=== PATIENT | female | born 1960 | race Caucasian/White ===

== ENCOUNTER 2017-04-02 13:18 | Emergency (ER) | payer OTHER ==
[~2017-04-02] VITALS: Ht 160 cm; Wt 92.5 kg
[~2017-04-02 13:18] MED LIST: BLACK COHOSH40 MG PO; FLUOXETINE HCL10 M1 PO; GLUCOPHAGE XR500 MG PO; GLYBURIDE 5 MG T5 M1 PO; HUMALOG100 UNIT/1; LANTUS; MEDROLDOSEPACK PO; MULTIVITAMINS PO; NORCO 5-325 TA1 EACH PO; ZANTAC 150MG T150 M1 PO
[2017-04-02 15:10] LABS: ABSOLUTE NEUTROPHILS 9.5 thou/uL (1.4-8.2); BASOPHILS 0.5 % (0.0-2.0); HEMOGLOBIN 13.1 gm/dL (12.0-15.0); LYMPHOCYTES 19.3 % (24.0-44.0); MCH 27.9 pg (26.0-34.0); MCHC 32.9 g/dL (28.0-37.0); MCV 84.9 fL (80.0-100.0); MONOCYTES 8.7 % (1.0-8.0); PLATELET COUNT 341 thou/uL (150-400); POLYS 68.5 % (36.0-66.0); RBC 4.71 mil/uL (4.20-5.00); RDW 14.3 % (10.5-14.5); WBC 13.8 thou/uL (4.0-11.0)
[2017-04-02 15:14] LABS: MANUAL DIFF NO
[2017-04-02 15:15] LABS: CREATININE 1.1 mg/dL (0.6-1.0); POTASSIUM 4.1 mmol/L (3.5-5.1)
[2017-04-02] MEDS ORDERED: KEFLEX500 MG PO (17:11)
[2017-04-02] MEDS ORDERED: BACTRIM DS TAB1 EACH PO (17:11)
[2017-04-02 17:37] VITALS: BP 120/51
== END 2017-04-02 17:37 | disposition home or self-care (01) ==
LOC: ER 13:18
PROVIDERS: Emergency Medicine
DX: S92.912A Unspecified fracture of left toe(s), initial encounter for closed fracture (principal); E11.9 Type 2 diabetes mellitus without complications; F17.210 Nicotine dependence, cigarettes, uncomplicated; F10.99 Alcohol use, unspecified with unspecified alcohol-induced disorder; Z88.7 Allergy status to serum and vaccine; Z90.711 Acquired absence of uterus with remaining cervical stump; Z86.718 Personal history of other venous thrombosis and embolism; Z79.4 Long term (current) use of insulin; W22.8XXA Striking against or struck by other objects, initial encounter; Y93.89 Activity, other specified; Y92.89 Other specified places as the place of occurrence of the external cause; Y99.8 Other external cause status

== ENCOUNTER → 2017-04-20 | Outpatient (CLI) | payer OTHER ==
[~2017-04-20] MED LIST changes: +BACTRIM DS TAB1 EACH PO; +KEFLEX500 MG PO
== END ==
LOC: HYPER 06:53
DX: E11.621 Type 2 diabetes mellitus with foot ulcer (principal); L97.521 Non-pressure chronic ulcer of other part of left foot limited to breakdown of skin; I70.245 Atherosclerosis of native arteries of left leg with ulceration of other part of foot; Z79.4 Long term (current) use of insulin; E11.51 Type 2 diabetes mellitus with diabetic peripheral angiopathy without gangrene; F17.210 Nicotine dependence, cigarettes, uncomplicated; J45.909 Unspecified asthma, uncomplicated; E78.5 Hyperlipidemia, unspecified; I25.2 Old myocardial infarction; Z87.01 Personal history of pneumonia (recurrent); M19.90 Unspecified osteoarthritis, unspecified site; Z72.89 Other problems related to lifestyle

== ENCOUNTER 2017-10-23 18:30 | Inpatient (IN) | payer OTHER ==
[~2017-10-23] VITALS: Ht 160 cm; Wt 82.1 kg
--- NOTE | ~2017-10-23 | HC ---
[facility] [place] [address] CONSULTATION Name: EULOGIO RUIZ Room #: 417-I ADM IN M.R.#: [id number] Admission: 10/23/17 Attend Phys: Min Pascal MD Discharge: Date of : 62 Report #: [id number] THIS REPORT FOR: //name// CC: Mni Greco DATE OF SERVICE: 10/24/2017 REASON FOR CONSULTATION: Redness and swelling of left great toe in the setting of diabetes mellitus type 2 and peripheral vascular disease with partial gangrene of right third toe, left great toe, left second toe. HISTORY OF PRESENT ILLNESS: The patient is a 57-year-old patient well known to Dr. Miguelito Segura. She suffers from heavy tobaccoism. She has had diabetic foot complications in the past with previous right fifth toe ray amputation, which has completely healed. Couple of weeks ago, the patient developed a "blister" of her right third toe and this toe has remained dark and discolored. More recently, the patient noted a "blister" of her left great toe, toe became red and swollen. She does not have much discomfort due to peripheral neuropathy. Due to a concern over infection of the toe with redness and swelling in the setting of diabetes, the patient came to the Emergency Room at [facility], has been admitted and placed on IV antibiotics, vancomycin. She has had arterial interventions done in the past by Dr. Curiel at [facility]. The study is not available to me at this time. On admission, the patient did have right lower extremity only arterial duplex done, which does show occlusion of the proximal to mid right superficial femoral artery with reconstitution of flow within the distal superficial femoral artery with monophasic waveforms. Left was not studied. The patient was admitted for cellulitis of the left great toe in the setting of diabetes. PAST MEDICAL HISTORY: Diabetes mellitus type 2, tobaccoism, peripheral vascular disease of lower extremities with previous arterial interventions, hypertension, peripheral neuropathy, history of herniated disk, history of deep vein thrombosis of the left foot, history of peripheral arterial disease of the lower extremities with history of bilateral stenting. PAST SURGICAL HISTORY: 1. History of previous angioplasty of lower extremities by Dr. Curiel. 2. Status post right fifth toe ray amputation. LABORATORY DATA: White blood count 14.8. Albumin 2.5. REVIEW OF SYSTEMS: Noncontributory. MEDICATIONS: Include Reading, previous Bactrim and Keflex, aspirin, Cymbalta, Lipitor, Lyrica, Singulair, Zestril, vitamin D3, Janumet, Humalog, [place] [address] CONSULTATION Name: [facility] Room #: [facility] IN ..#: [id number] Admission: 10/23/17 Attend Phys: Min Pascal MD Discharge: Date of : 62 Report #: [id number] insulin. PHYSICAL EXAMINATION: GENERAL: Shows a chronically ill appearing middle-aged, mildly obese. HEENT: Dentition shows evidence of tobaccoism. LUNGS: Respirations unlabored. HEART: Shows regular rate and rhythm. ABDOMEN: Soft and obese. EXTREMITIES: Show discoloration of the right distal third toe to the distal interphalangeal joint. There is pallor of the distal toe with some dark discoloration, clinically appears to be distal dry gangrene of the toe. Dorsalis pedis pulse not easily palpable. Examination of the left foot shows dorsalis pedis pulse not easily palpable. The left great toe is mildly enlarged and mildly erythematous on the plantar surface of the great toe. There is a linear open wound with subcutaneous discoloration. Toe appears mildly cellulitic and partially gangrenous. There is a small area of dry gangrene of the distal left second toe, only about 4 x 5 mm. IMPRESSION: 1. Diabetes mellitus type 2 with foot ulcer. 2. History of previous amputation of right fifth toe with ray amputation for diabetic complications. 3. Tobaccoism. 4. History of deep venous thrombosis. 5. Severe protein calorie malnutrition. 6. Obesity. 7. Severe peripheral vascular disease of lower extremities with previous arterial interventions. 8. Cellulitis of left great toe in the setting of diabetes mellitus type 2. 9. Partial gangrene of left great toe, left second toe and right third toe. PLAN: IV antibiotics, vancomycin. We will paint the toe wounds with Betadine. Wounds are dry, do not appear to be need debridement. We will consult with Dr. Curiel and order further arterial studies of the left lower extremity with Dopplers on Thursday. Wound care team will follow. <ELECTRONICALLY SIGNED> By: Jonathan Barton MD 10/25/17 0759 [id number] Jonathan Barton MD /nt
[2017-10-23] MEDS ORDERED: LIPITOR 20 MG T20 M1 PO (20:00)
[2017-10-23] MEDS ORDERED: ASPIR 8181 MG PO (20:00)
[2017-10-23] MEDS ORDERED: CYMBALTA20 MG PO (20:00)
[2017-10-23] MEDS ORDERED: SINGULAIR 10 MG10 M1 PO (20:01)
[2017-10-23] MEDS ORDERED: LISINOPRIL5 MG PO (20:01)
[2017-10-23] MEDS ORDERED: LYRICA 50 MG50 MG PO (20:01)
[2017-10-23] MEDS ORDERED: VITAMIN D-32000 UNI1 PO (20:02)
[2017-10-23 20:03] LABS: ABSOLUTE NEUTROPHILS 9.9 thou/uL (1.4-8.2); BASOPHILS 0.7 % (0.0-2.0); HEMATOCRIT 41.1 % (37.0-47.0); HEMOGLOBIN 13.9 gm/dL (12.0-15.0); LYMPHOCYTES 24.5 % (24.0-44.0); MCH 28.6 pg (26.0-34.0); MCHC 33.7 g/dL (28.0-37.0); MCV 84.8 fL (80.0-100.0); MONOCYTES 6.8 % (1.0-8.0); PLATELET COUNT 346 thou/uL (150-400); RBC 4.84 mil/uL (4.20-5.00); RDW 14.2 % (10.5-14.5); WBC 14.8 thou/uL (4.0-11.0)
[2017-10-23] MEDS ORDERED: JANUMET 50-1,01 EACH PO (20:03)
[2017-10-23] MEDS ORDERED: HUMALOG100 UNIT/1 SUBQ (20:03)
[2017-10-23] MEDS ORDERED: LANTUS100 UNIT/M SUBQ (20:04)
[2017-10-23 20:28] LABS: ALBUMIN 2.5 g/dL (3.4-5.0); CALCIUM 9.5 mg/dL (8.5-10.1); POTASSIUM 4.5 mmol/L (3.5-5.1); TOTAL BILIRUBIN 0.3 mg/dL (<0.1-1.0); TOTAL PROTEIN 7.5 g/dL (6.4-8.2)
[2017-10-23 23:25] VITALS: BP 103/53
[2017-10-23 23:43] VITALS: BP 135/75
[2017-10-24 04:45] VITALS: BP 146/75
[2017-10-24 05:51] LABS: HEMATOCRIT 38.6 % (37.0-47.0); MCH 28.3 pg (26.0-34.0); MCHC 33.7 g/dL (28.0-37.0); MCV 84.2 fL (80.0-100.0); RBC 4.59 mil/uL (4.20-5.00); RDW 13.8 % (10.5-14.5)
[2017-10-24 06:03] LABS: CALCIUM 8.8 mg/dL (8.5-10.1); CREATININE 0.8 mg/dL (0.6-1.0); POTASSIUM 3.7 mmol/L (3.5-5.1)
[2017-10-24 07:00] VITALS: BP 127/60
[2017-10-24 15:15] VITALS: BP 88/42
[2017-10-24 19:10] VITALS: BP 92/54
[2017-10-25 04:49] VITALS: BP 112/61
[2017-10-25 06:43] LABS: BASOPHILS 0.5 % (0.0-2.0); EOSINOPHILS 2.3 % (0.0-3.0); HEMATOCRIT 41.4 % (37.0-47.0); HEMOGLOBIN 13.4 gm/dL (12.0-15.0); LYMPHOCYTES 29.8 % (24.0-44.0); MCH 27.6 pg (26.0-34.0); MCHC 32.4 g/dL (28.0-37.0); MCV 85.2 fL (80.0-100.0); MONOCYTES 9.1 % (1.0-8.0); PLATELET COUNT 333 thou/uL (150-400); POLYS 58.3 % (36.0-66.0); RBC 4.87 mil/uL (4.20-5.00); RDW 13.7 % (10.5-14.5); WBC 11.9 thou/uL (4.0-11.0)
[2017-10-25 06:57] LABS: CALCIUM 8.7 mg/dL (8.5-10.1); CREATININE 0.8 mg/dL (0.6-1.0); MAGNESIUM 1.5 mg/dL (1.8-2.4); POTASSIUM 3.8 mmol/L (3.5-5.1)
[2017-10-25 07:14] VITALS: BP 111/74
[2017-10-25 16:46] VITALS: BP 135/80
[2017-10-25 20:00] VITALS: BP 143/71
[2017-10-26 06:37] VITALS: BP 146/91
[2017-10-26 12:33] VITALS: BP 180/90
[2017-10-26 16:58] VITALS: BP 142/72
[2017-10-26 20:57] VITALS: BP 162/79
[2017-10-26 23:20] VITALS: BP 102/59
[2017-10-27 04:10] VITALS: BP 89/52
[2017-10-27 04:14] LABS: ABSOLUTE NEUTROPHILS 10.1 thou/uL (1.4-8.2); BASOPHILS 0.4 % (0.0-2.0); EOSINOPHILS 1.4 % (0.0-3.0); HEMOGLOBIN 11.8 gm/dL (12.0-15.0); LYMPHOCYTES 22.7 % (24.0-44.0); MCH 27.8 pg (26.0-34.0); MCHC 32.7 g/dL (28.0-37.0); MCV 85.1 fL (80.0-100.0); MONOCYTES 8.2 % (1.0-8.0); PLATELET COUNT 297 thou/uL (150-400); POLYS 67.3 % (36.0-66.0); RBC 4.23 mil/uL (4.20-5.00); RDW 13.7 % (10.5-14.5); WBC 15.1 thou/uL (4.0-11.0)
[2017-10-27 04:25] LABS: CALCIUM 8.3 mg/dL (8.5-10.1); CREATININE 0.8 mg/dL (0.6-1.0); MAGNESIUM 1.6 mg/dL (1.8-2.4); POTASSIUM 3.7 mmol/L (3.5-5.1)
[2017-10-27 07:01] VITALS: BP 134/66
[2017-10-27 12:59] LABS: CHOLESTEROL 177 mg/dL (<200); HDL CHOLESTEROL 39 mg/dL (>40); LDL CHOLESTEROL 117 mg/dL (<100); TC:HDL 4.5 Ratio (Not establshd); TRIGLYCERIDE 108 mg/dL (<150); VLDL 22 mg/dL (<40)
[2017-10-27 16:46] VITALS: BP 168/80
[2017-10-27 19:59] VITALS: BP 171/77
[2017-10-27 23:28] VITALS: BP 144/72
[2017-10-28] VITALS (17 sets, daily range): BP systolic 102–125; BP diastolic 53–74
[2017-10-28 02:09] LABS: GLYCOHEMOGLOBIN (HGB A1C) 13.7 % (4.8-5.6)
[2017-10-28 17:59] LABS: PROTIME 10.4 Seconds (9.3-11.4)
[2017-10-29 08:01] LABS: ABSOLUTE NEUTROPHILS 10.1 thou/uL (1.4-8.2); BASOPHILS 0.4 % (0.0-2.0); EOSINOPHILS 2.3 % (0.0-3.0); HEMATOCRIT 34.6 % (37.0-47.0); HEMOGLOBIN 11.5 gm/dL (12.0-15.0); LYMPHOCYTES 19.7 % (24.0-44.0); MCH 28.1 pg (26.0-34.0); MCHC 33.2 g/dL (28.0-37.0); MCV 84.7 fL (80.0-100.0); MONOCYTES 11.1 % (1.0-8.0); PLATELET COUNT 338 thou/uL (150-400); POLYS 66.5 % (36.0-66.0); RBC 4.09 mil/uL (4.20-5.00); RDW 13.5 % (10.5-14.5); WBC 15.2 thou/uL (4.0-11.0)
[2017-10-29 08:14] LABS: CALCIUM 8.7 mg/dL (8.5-10.1); CREATININE 0.9 mg/dL (0.6-1.0); MAGNESIUM 1.5 mg/dL (1.8-2.4); POTASSIUM 3.9 mmol/L (3.5-5.1)
[2017-10-29 08:16] LABS: INR 1.1; PROTIME 11.3 Seconds (9.3-11.4)
[2017-10-29] MEDS ORDERED: COUMADIN 5 MG TA5 M1 PO (12:28)
[2017-10-29] MEDS ORDERED: BACTRIM DS TAB1 EACH PO (12:28)
[2017-10-29] MEDS ORDERED: HYDROCODON-ACE1 EAC7 PO (12:28)
[2017-10-29] MEDS ORDERED: JANUMET 50-1,01 EACH PO (12:28)
[2017-10-29 16:18] VITALS: BP 102/56
== END 2017-10-29 17:04 | disposition home or self-care (01) | DRG 270 ==
LOC: ER 18:30 → 4E 21:20 → EROBS 21:20 → 4E 23:26 → SICU 10-27 15:45 → ICU 10-28 13:23 → SICU 10-28 18:40 → ENTRNSPT 10-29 16:39 → SICU 10-29 17:04
PROVIDERS: Internal Medicine; Nurse Practitioner Family; Nurse Practitioner Gerontology
PROC: 04CK3ZZ Extirpation of Matter from Right Femoral Artery, Percutaneous Approach (ICD-10-PCS; principal; 2017-10-26)
PROC: 047K34Z Dilation of Right Femoral Artery with Drug-eluting Intraluminal Device, Percutaneous Approach (ICD-10-PCS; principal; 2017-10-26)
PROC: B4181ZZ Fluoroscopy of Bilateral Renal Arteries using Low Osmolar Contrast (ICD-10-PCS; principal; 2017-10-26)
PROC: B41D1ZZ Fluoroscopy of Aorta and Bilateral Lower Extremity Arteries using Low Osmolar Contrast (ICD-10-PCS; principal; 2017-10-26)
PROC: 04CL3ZZ Extirpation of Matter from Left Femoral Artery, Percutaneous Approach (ICD-10-PCS; 2017-10-29)
PROC: 047L34Z Dilation of Left Femoral Artery with Drug-eluting Intraluminal Device, Percutaneous Approach (ICD-10-PCS; 2017-10-29)
DX: E11.52 Type 2 diabetes mellitus with diabetic peripheral angiopathy with gangrene (principal); E43 Unspecified severe protein-calorie malnutrition; E87.1 Hypo-osmolality and hyponatremia; E11.621 Type 2 diabetes mellitus with foot ulcer; L97.529 Non-pressure chronic ulcer of other part of left foot with unspecified severity; E83.42 Hypomagnesemia; E78.00 Pure hypercholesterolemia, unspecified; J45.909 Unspecified asthma, uncomplicated; I95.9 Hypotension, unspecified; L97.519 Non-pressure chronic ulcer of other part of right foot with unspecified severity; L03.032 Cellulitis of left toe; S90.422A Blister (nonthermal), left great toe, initial encounter; X58.XXXA Exposure to other specified factors, initial encounter; E11.65 Type 2 diabetes mellitus with hyperglycemia; E89.0 Postprocedural hypothyroidism; E11.42 Type 2 diabetes mellitus with diabetic polyneuropathy; E66.9 Obesity, unspecified; I10 Essential (primary) hypertension; F17.210 Nicotine dependence, cigarettes, uncomplicated; Z86.718 Personal history of other venous thrombosis and embolism; Z79.4 Long term (current) use of insulin; Z79.82 Long term (current) use of aspirin; Z68.32 Body mass index [BMI] 32.0-32.9, adult; Z79.899 Other long term (current) drug therapy; Z71.6 Tobacco abuse counseling; Z88.7 Allergy status to serum and vaccine; Z95.820 Peripheral vascular angioplasty status with implants and grafts; Z89.421 Acquired absence of other right toe(s); Y93.89 Activity, other specified; Y92.89 Other specified places as the place of occurrence of the external cause; Y99.8 Other external cause status; Z91.14 Patient's other noncompliance with medication regimen
CPT/HCPCS: 10084; 15002

== ENCOUNTER 2017-11-04 22:59 | Inpatient (IN) | payer OTHER ==
[~2017-11-04] VITALS: Ht 160 cm; Wt 78.9 kg
--- NOTE | ~2017-11-04 | HC ---
[facility] [address] CONSULTATION Name: EULOGIO RUIZ Room #: 356- ADM IN M.R.#: [id number] Admission: 11/05/17 Attend Phys: Belkis Menard Discharge: Date of : 62 Report #: [id number] THIS REPORT FOR: //name// CC: Belkis Conte DATE OF SERVICE: 11/05/2017 CHIEF COMPLAINT: Necrotic toes. HISTORY OF PRESENT ILLNESS: This is a 57-year-old female patient, known to our service, who was hospitalized earlier this month with redness and swelling of her left great toe and history of arterial disease and diabetes. She was seen and performed right superficial femoral artery and left superficial femoral artery atherectomy and stent placement in 04/2017. She did not return for followup and then has recently undergone a left superficial femoral artery atherectomy and stent graft placement and secondary thrombectomy of left superficial femoral artery, after undergoing procedures on 10/26/2017 and 10/28/2017. She is noted to have necrosis of toes on both feet. I have been asked to see her with regard to wound care. 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 ALLERGIES: TETANUS AND DIPHTHERIA TOXOID. MEDICATIONS: Include hydrocodone, Janumet, Coumadin, aspirin, Cymbalta, Lipitor, Lyrica, Singulair, Zestril, Humalog, Lantus. SOCIAL HISTORY: The patient smokes cigarettes one-half to one pack per day over the last 22 years. Denies significant alcohol use. FAMILY HISTORY: Positive for lung cancer in her father and diabetes in both parents. REVIEW OF SYSTEMS: CONSTITUTIONAL: The patient denies fever, chills, or weight loss. NEUROLOGICAL: The patient has focal weakness. ENT: The patient denies earache, nasal drainage, sore throat. CARDIOVASCULAR: The patient denies chest pain, palpitation, diaphoresis. PULMONARY: The patient denies cough, shortness of breath. GASTROINTESTINAL: The patient did have nausea and vomiting, which has now much improved after her visit in the Emergency Department. ORTHOPEDIC: The patient is aware of the ulcerations and necrosis of her toes. Other systems in a 14-point review of systems are negative. [address] [address] CONSULTATION Name: [facility] Room #: [address] [place] [address] IN M.R.#: [id number] Admission: 11/05/17 Attend Phys: Belkis Menard Discharge: Date of : 62 Report #: [id number] PHYSICAL EXAMINATION: VITAL SIGNS: At this time include temperature 97.8, pulse 83, respiratory rate of 17, blood pressure 93/32. GENERAL: This is a chronically ill-appearing female patient, appears to be in minimal distress. HEENT: Head normocephalic. Nose and throat clear. NECK: Supple. LUNGS: Clear. HEART: Regular rhythm. ABDOMEN: Soft. Bowel sounds are present. EXTREMITIES: The lower extremities demonstrate palpable distal pulses. She has eschar involving her right third toe as well as the left first and second toes. This appears to be full thickness, although it is dry, stable and intact. CLINICAL IMPRESSION: 1. Necrosis of the right third toe and left first and second toes due to peripheral arterial disease and diabetes mellitus. 2. Peripheral arterial disease, now status post bilateral lower extremity percutaneous revascularization. 3. Uncontrolled diabetes mellitus. RECOMMENDATIONS: At this point in time, we will recommend topical Betadine to the areas of eschar and otherwise open to air. It would not be prudent to perform aggressive debridement at this time as she is at high risk for infection and nonhealing and that could lead to a higher level amputation. We will recommend aggressive nutritional support for wound healing and optimal management of her diabetes. The patient is agreeable to current plan of care. I appreciate being asked to see her again in consultation. <ELECTRONICALLY SIGNED> By: Phong Liang MD 11/06/17 0831 [id number] Phong Liang MD /nt
--- NOTE | ~2017-11-04 | EKG ---
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 : 1960 Requested By: Jessica Clark Order Number: [id number] MD: Haroldo Haile Measurements Intervals [place] Rate: 98 P: 39 UT: 144 QRS: -45 QRSD: 96 T: 74 QT: 369 QTc: 472 Interpretive Statements Sinus rhythm Left ventricular hypertrophy Inferior infarct, old Poor R wave progression No previous ECG available for comparison Electronically Signed On 11-05-2017 8:03:40 CDT by Haroldo Haile [email or web address] <ELECTRONICALLY SIGNED> By: Haroldo Haile MD, [facility] 11/05/17 [id number] Haroldo Hiale MD, FACC /EPI
[~2017-11-04 22:59] MED LIST changes: +ASPIR 8181 MG PO; +COUMADIN 5 MG TA5 M1 PO; +CYMBALTA30 MG PO; +HUMALOG100 UNIT/1 SUBQ; +HYDROCODON-ACE1 EAC7 PO; +JANUMET 50-1,01 EACH PO; +LANTUS100 UNIT/M SUBQ; +LIPITOR 20 MG T20 M1 PO; +LISINOPRIL5 MG PO; +LYRICA 50 MG50 MG PO; +SINGULAIR 10 MG10 M1 PO; +VITAMIN D-32000 UNI1 PO
[2017-11-04 23:47] VITALS: BP 104/69
[2017-11-05 00:02] LABS: ABSOLUTE NEUTROPHILS 9.5 thou/uL (1.4-8.2); BASOPHILS 1.1 % (0.0-2.0); EOSINOPHILS 1.3 % (0.0-3.0); HEMATOCRIT 41.5 % (37.0-47.0); HEMOGLOBIN 13.8 gm/dL (12.0-15.0); LYMPHOCYTES 24.3 % (24.0-44.0); MCH 27.7 pg (26.0-34.0); MCHC 33.3 g/dL (28.0-37.0); MCV 83.4 fL (80.0-100.0); MONOCYTES 5.8 % (1.0-8.0); PLATELET COUNT 494 thou/uL (150-400); POLYS 67.5 % (36.0-66.0); RBC 4.98 mil/uL (4.20-5.00); RDW 13.9 % (10.5-14.5); WBC 14.1 thou/uL (4.0-11.0)
[2017-11-05 00:12] LABS: ANION GAP 13 mmol/L (7-16); BUN 28 mg/dL (7-18); CALCIUM 10.1 mg/dL (8.5-10.1); CHLORIDE 92 mmol/L (98-107); CO2 25 mmol/L (21-32); CREATININE 1.4 mg/dL (0.6-1.0); GLUCOSE 453 mg/dL (74-106); POTASSIUM 4.6 mmol/L (3.5-5.1); SODIUM 130 mmol/L (136-145)
[2017-11-05 00:19] LABS: ALBUMIN 2.8 g/dL (3.4-5.0); APTT 38.6 Seconds (24.5-32.8); DIRECT BILIRUBIN < 0.1 mg/dL (<0.1-0.3); LIPASE 98 U/L (73-393); PROTIME 19.9 Seconds (9.3-11.4); SGOT 25 U/L (15-37); SGPT 25 U/L (30-65); TOTAL BILIRUBIN 0.2 mg/dL (<0.1-1.0); TOTAL PROTEIN 8.9 g/dL (6.4-8.2); TROPONIN-I < 0.04 ng/mL (<0.06)
[2017-11-05 02:03] LABS: URINE BILIRUBIN NEGATIVE (Negative); URINE BLOOD 2+ (Negative); URINE CLARITY CLEAR; URINE COLOR YELLOW; URINE GLUCOSE-RANDOM* 3+ (Negative); URINE KETONES TRACE (Negative); URINE LEUKOCYTES-REFLEX NEGATIVE (Negative); URINE NITRITE-REFLEX NEGATIVE (Negative); URINE PROTEIN (DIPSTICK) 2+ (Negative); URINE SPECIFIC GRAVITY 1.025 (1.005-1.035); URINE UROBILINOGEN 0.2 E.U./dl (0.2-1.0)
[2017-11-05 03:07] VITALS: BP 120/69
[2017-11-05 03:10] VITALS: BP 122/69
[2017-11-05 06:25] LABS: SQUAMOUS 4-10 Moderate /LPF (0-3)
[2017-11-05 06:26] LABS: BACTERIA-REFLEX None Seen /HPF (None Seen); CRYSTALS None Seen /LPF (None Seen); HYALINE CASTS 0-3 Few /LPF (None Seen); MUCUS 0-3 Light strn/LPF (None Seen); URINE RBC 0-2 Rare /HPF (0-2); URINE WBC-REFLEX None Seen /HPF (0-5)
[2017-11-05 08:00] VITALS: BP 93/32
[2017-11-05 20:00] VITALS: BP 89/54
[2017-11-06 00:42] VITALS: BP 98/43
[2017-11-06 04:02] VITALS: BP 131/51
[2017-11-06 05:26] LABS: INR 1.5; PROTIME 15.7 Seconds (9.3-11.4)
[2017-11-06 05:28] LABS: CALCIUM 8.7 mg/dL (8.5-10.1); MAGNESIUM 1.6 mg/dL (1.8-2.4); POTASSIUM 4.6 mmol/L (3.5-5.1)
[2017-11-06 05:58] LABS: HEMATOCRIT 35.7 % (37.0-47.0); MCH 27.3 pg (26.0-34.0); MCHC 32.7 g/dL (28.0-37.0); MCV 83.5 fL (80.0-100.0); RBC 4.28 mil/uL (4.20-5.00); RDW 13.6 % (10.5-14.5); WBC 11.2 thou/uL (4.0-11.0)
[2017-11-06 06:00] LABS: HEMOGLOBIN 11.7 gm/dL (12.0-15.0)
[2017-11-06 07:50] VITALS: BP 140/89
[2017-11-06 11:50] VITALS: BP 118/79
[2017-11-06 15:48] VITALS: BP 99/53
[2017-11-06 19:21] VITALS: BP 123/70
[2017-11-07 00:26] VITALS: BP 106/53
[2017-11-07 04:29] VITALS: BP 139/87
[2017-11-07 06:41] LABS: INR 1.5; PROTIME 15.7 Seconds (9.3-11.4)
[2017-11-07] MEDS ORDERED: TRADJENTA5 MG PO (08:42)
[2017-11-07] MEDS ORDERED: NOVOLIN N100 UNIT/1 SUBQ (08:43)
[2017-11-07 10:30] VITALS: BP 139/87
[2017-11-07 12:00] VITALS: BP 95/64
== END 2017-11-07 13:29 | disposition home or self-care (01) | DRG 872 ==
LOC: ER 22:59 → EROBS 11-05 02:14 → 3W 11-05 02:14 → ENTRNSPT 11-07 13:00 → 3W 11-07 13:29
PROVIDERS: Emergency Medicine; Nurse Practitioner Acute Care
PROC: 5A09357 Assistance with Respiratory Ventilation, Less than 24 Consecutive Hours, Continuous Positive Airway Pressure (ICD-10-PCS; principal; 2017-11-05)
DX: A41.9 Sepsis, unspecified organism (principal); E11.52 Type 2 diabetes mellitus with diabetic peripheral angiopathy with gangrene; I96 Gangrene, not elsewhere classified; N17.9 Acute kidney failure, unspecified; L03.115 Cellulitis of right lower limb; K52.9 Noninfective gastroenteritis and colitis, unspecified; E11.65 Type 2 diabetes mellitus with hyperglycemia; E11.51 Type 2 diabetes mellitus with diabetic peripheral angiopathy without gangrene; F17.210 Nicotine dependence, cigarettes, uncomplicated; E11.40 Type 2 diabetes mellitus with diabetic neuropathy, unspecified; E89.0 Postprocedural hypothyroidism; J45.909 Unspecified asthma, uncomplicated; E78.5 Hyperlipidemia, unspecified; I25.10 Atherosclerotic heart disease of native coronary artery without angina pectoris; Z95.5 Presence of coronary angioplasty implant and graft; I25.2 Old myocardial infarction; Z80.1 Family history of malignant neoplasm of trachea, bronchus and lung; Z83.3 Family history of diabetes mellitus; Z86.718 Personal history of other venous thrombosis and embolism; Z89.421 Acquired absence of other right toe(s); Z95.820 Peripheral vascular angioplasty status with implants and grafts; Z88.8 Allergy status to other drugs, medicaments and biological substances; Z79.82 Long term (current) use of aspirin; Z79.899 Other long term (current) drug therapy
CPT/HCPCS: 10779

== ENCOUNTER → 2017-11-19 | Outpatient (CLI) | payer OTHER ==
[~2017-11-19] MED LIST changes: +NOVOLIN N100 UNIT/1 SUBQ; +TRADJENTA5 MG PO
== END ==
LOC: HYPER 08:56
DX: E11.621 Type 2 diabetes mellitus with foot ulcer (principal); I70.262 Atherosclerosis of native arteries of extremities with gangrene, left leg; L97.521 Non-pressure chronic ulcer of other part of left foot limited to breakdown of skin; I70.261 Atherosclerosis of native arteries of extremities with gangrene, right leg; L97.511 Non-pressure chronic ulcer of other part of right foot limited to breakdown of skin; L03.115 Cellulitis of right lower limb; E11.51 Type 2 diabetes mellitus with diabetic peripheral angiopathy without gangrene; L84 Corns and callosities; E78.5 Hyperlipidemia, unspecified; I25.2 Old myocardial infarction; M19.90 Unspecified osteoarthritis, unspecified site; J45.909 Unspecified asthma, uncomplicated; F17.210 Nicotine dependence, cigarettes, uncomplicated; Z87.01 Personal history of pneumonia (recurrent); Z79.4 Long term (current) use of insulin

== ENCOUNTER 2017-12-07 13:03 | Inpatient (IN) | payer OTHER ==
[~2017-12-07] VITALS: Ht 160 cm; Wt 79.8 kg
[2017-12-07 13:06] VITALS: BP 104/60
[2017-12-07] MEDS ORDERED: JANUMET XR 50-1 EAC1 PO (13:08)
[2017-12-07] MEDS ORDERED: LEVAQUIN 500 M500 M2 PO (13:09)
[2017-12-07 14:26] LABS: ABSOLUTE NEUTROPHILS 9.3 thou/uL (1.4-8.2); BASOPHILS 1.7 % (0.0-2.0); EOSINOPHILS 2.9 % (0.0-3.0); HEMOGLOBIN 12.7 gm/dL (12.0-15.0); LYMPHOCYTES 27.4 % (24.0-44.0); MCH 27.7 pg (26.0-34.0); MCHC 33.3 g/dL (28.0-37.0); MCV 83.2 fL (80.0-100.0); MONOCYTES 6.2 % (1.0-8.0); PLATELET COUNT 341 thou/uL (150-400); POLYS 61.8 % (36.0-66.0); RBC 4.57 mil/uL (4.20-5.00); RDW 14.9 % (10.5-14.5); WBC 15.2 thou/uL (4.0-11.0)
[2017-12-07 14:39] LABS: INR 1.7; PROTIME 17.2 Seconds (9.3-11.4)
[2017-12-07 14:44] LABS: CALCIUM 9.5 mg/dL (8.5-10.1); CREATININE 0.9 mg/dL (0.6-1.0); POTASSIUM 4.7 mmol/L (3.5-5.1)
[2017-12-07 14:55] LABS: ALBUMIN 3.3 g/dL (3.4-5.0); TOTAL BILIRUBIN 0.3 mg/dL (<0.1-1.0); TOTAL PROTEIN 7.8 g/dL (6.4-8.2)
[2017-12-07 17:16] VITALS: BP 142/62
[2017-12-07 17:30] VITALS: BP 154/71
[2017-12-07 17:45] VITALS: BP 141/82
[2017-12-07 18:00] VITALS: BP 131/68
[2017-12-08] VITALS (16 sets, daily range): BP systolic 92–155; BP diastolic 46–81
[2017-12-08 05:52] LABS: PROTIME 19.8 Seconds (9.3-11.4)
[2017-12-08 05:54] LABS: CALCIUM 8.4 mg/dL (8.5-10.1); CREATININE 0.7 mg/dL (0.6-1.0)
[2017-12-08 05:55] LABS: POTASSIUM 3.7 mmol/L (3.5-5.1)
[2017-12-08] MEDS ORDERED: COUMADIN 5 MG TA5 M1 PO (09:41)
[2017-12-08] MEDS ORDERED: PLAVIX 75 MG TA75 M1 PO (09:41)
[2017-12-09] VITALS (12 sets, daily range): BP systolic 85–132; BP diastolic 42–69
[2017-12-09 05:18] LABS: PROTIME 20.3 Seconds (9.3-11.4)
[2017-12-09] MEDS ORDERED: LIPITOR 20 MG T20 M1 PO (09:02)
[2017-12-09] MEDS ORDERED: PLAVIX 75 MG TA75 M1 PO (10:45)
== END 2017-12-09 12:39 | disposition home or self-care (01) | DRG 253 ==
LOC: ER 13:03 → ICU 14:23 → EROBS 14:23 → ICU 16:57
PROVIDERS: Emergency Medicine; Hospitalist; Nuclear Medicine Nuclear Cardiology
PROC: B4181ZZ Fluoroscopy of Bilateral Renal Arteries using Low Osmolar Contrast (ICD-10-PCS; principal; 2017-12-07)
PROC: B41D1ZZ Fluoroscopy of Aorta and Bilateral Lower Extremity Arteries using Low Osmolar Contrast (ICD-10-PCS; principal; 2017-12-07)
PROC: 047L3ZZ Dilation of Left Femoral Artery, Percutaneous Approach (ICD-10-PCS; 2017-12-08)
PROC: 3E05317 Introduction of Other Thrombolytic into Peripheral Artery, Percutaneous Approach (ICD-10-PCS; 2017-12-08)
DX: T82.868A Thrombosis due to vascular prosthetic devices, implants and grafts, initial encounter (principal); I74.3 Embolism and thrombosis of arteries of the lower extremities; J45.909 Unspecified asthma, uncomplicated; F17.210 Nicotine dependence, cigarettes, uncomplicated; E78.5 Hyperlipidemia, unspecified; E78.00 Pure hypercholesterolemia, unspecified; I10 Essential (primary) hypertension; I25.2 Old myocardial infarction; E11.40 Type 2 diabetes mellitus with diabetic neuropathy, unspecified; I25.10 Atherosclerotic heart disease of native coronary artery without angina pectoris; E89.0 Postprocedural hypothyroidism; E11.51 Type 2 diabetes mellitus with diabetic peripheral angiopathy without gangrene; Y83.8 Other surgical procedures as the cause of abnormal reaction of the patient, or of later complication, without mention of misadventure at the time of the procedure; Y92.89 Other specified places as the place of occurrence of the external cause; Z79.2 Long term (current) use of antibiotics; Z79.82 Long term (current) use of aspirin; Z79.4 Long term (current) use of insulin; Z79.899 Other long term (current) drug therapy; Z88.7 Allergy status to serum and vaccine; Z86.718 Personal history of other venous thrombosis and embolism; Z79.01 Long term (current) use of anticoagulants; Z89.421 Acquired absence of other right toe(s); Z98.890 Other specified postprocedural states; Z95.5 Presence of coronary angioplasty implant and graft; Z95.820 Peripheral vascular angioplasty status with implants and grafts; Z83.3 Family history of diabetes mellitus; Z80.1 Family history of malignant neoplasm of trachea, bronchus and lung
CPT/HCPCS: 10078

== ENCOUNTER → 2018-01-12 | Outpatient (CLI) | payer OTHER ==
[~2018-01-12] MED LIST changes: +JANUMET XR 50-1 EAC1 PO; +LEVAQUIN 500 M500 M2 PO; +PLAVIX 75 MG TA75 M1 PO
== END ==
LOC: HYPER 06:30
DX: E11.621 Type 2 diabetes mellitus with foot ulcer (principal); I70.262 Atherosclerosis of native arteries of extremities with gangrene, left leg; L97.521 Non-pressure chronic ulcer of other part of left foot limited to breakdown of skin; I70.261 Atherosclerosis of native arteries of extremities with gangrene, right leg; L97.511 Non-pressure chronic ulcer of other part of right foot limited to breakdown of skin; E11.51 Type 2 diabetes mellitus with diabetic peripheral angiopathy without gangrene; E11.39 Type 2 diabetes mellitus with other diabetic ophthalmic complication; H40.9 Unspecified glaucoma; H42 Glaucoma in diseases classified elsewhere; L84 Corns and callosities; I25.2 Old myocardial infarction; E78.5 Hyperlipidemia, unspecified; M19.90 Unspecified osteoarthritis, unspecified site; J45.909 Unspecified asthma, uncomplicated; F17.210 Nicotine dependence, cigarettes, uncomplicated; Z98.49 Cataract extraction status, unspecified eye; Z87.01 Personal history of pneumonia (recurrent); Z79.4 Long term (current) use of insulin

== ENCOUNTER → 2018-03-25 | Outpatient (CLI) | payer OTHER | LOC: HYPER 03-23 11:19 | DX: T87.89 Other complications of amputation stump (principal); E11.621 Type 2 diabetes mellitus with foot ulcer; L97.522 Non-pressure chronic ulcer of other part of left foot with fat layer exposed; S91.109A Unspecified open wound of unspecified toe(s) without damage to nail, initial encounter; I70.261 Atherosclerosis of native arteries of extremities with gangrene, right leg; I70.262 Atherosclerosis of native arteries of extremities with gangrene, left leg; E11.39 Type 2 diabetes mellitus with other diabetic ophthalmic complication; H40.9 Unspecified glaucoma; E07.89 Other specified disorders of thyroid; E78.5 Hyperlipidemia, unspecified; I25.2 Old myocardial infarction; J45.909 Unspecified asthma, uncomplicated; M19.90 Unspecified osteoarthritis, unspecified site; F17.210 Nicotine dependence, cigarettes, uncomplicated; Z95.820 Peripheral vascular angioplasty status with implants and grafts; Z79.4 Long term (current) use of insulin; X58.XXXA Exposure to other specified factors, initial encounter; Y93.89 Activity, other specified; Y92.89 Other specified places as the place of occurrence of the external cause; Y99.8 Other external cause status; Y83.5 Amputation of limb(s) as the cause of abnormal reaction of the patient, or of later complication, without mention of misadventure at the time of the procedure ==

== ENCOUNTER → 2018-04-22 | Outpatient (CLI) | payer OTHER | LOC: HYPER 06:53 | DX: T87.89 Other complications of amputation stump (principal); L97.522 Non-pressure chronic ulcer of other part of left foot with fat layer exposed; I70.263 Atherosclerosis of native arteries of extremities with gangrene, bilateral legs; E11.621 Type 2 diabetes mellitus with foot ulcer; E11.51 Type 2 diabetes mellitus with diabetic peripheral angiopathy without gangrene; E11.39 Type 2 diabetes mellitus with other diabetic ophthalmic complication; H40.9 Unspecified glaucoma; E07.89 Other specified disorders of thyroid; E78.5 Hyperlipidemia, unspecified; I25.2 Old myocardial infarction; J45.909 Unspecified asthma, uncomplicated; K21.9 Gastro-esophageal reflux disease without esophagitis; M19.90 Unspecified osteoarthritis, unspecified site; F41.9 Anxiety disorder, unspecified; F32.9 Major depressive disorder, single episode, unspecified; F17.210 Nicotine dependence, cigarettes, uncomplicated; Z79.4 Long term (current) use of insulin; Z95.820 Peripheral vascular angioplasty status with implants and grafts; Y83.5 Amputation of limb(s) as the cause of abnormal reaction of the patient, or of later complication, without mention of misadventure at the time of the procedure ==

== ENCOUNTER → 2018-07-21 | Outpatient (CLI) | payer OTHER | LOC: HYPER 05-20 09:38 | DX: T87.89 Other complications of amputation stump (principal); E11.621 Type 2 diabetes mellitus with foot ulcer; L97.522 Non-pressure chronic ulcer of other part of left foot with fat layer exposed; I70.263 Atherosclerosis of native arteries of extremities with gangrene, bilateral legs; E11.51 Type 2 diabetes mellitus with diabetic peripheral angiopathy without gangrene; E11.39 Type 2 diabetes mellitus with other diabetic ophthalmic complication; H40.9 Unspecified glaucoma; E78.5 Hyperlipidemia, unspecified; E07.89 Other specified disorders of thyroid; I25.2 Old myocardial infarction; J45.909 Unspecified asthma, uncomplicated; K21.9 Gastro-esophageal reflux disease without esophagitis; M19.90 Unspecified osteoarthritis, unspecified site; F17.210 Nicotine dependence, cigarettes, uncomplicated; F41.9 Anxiety disorder, unspecified; F32.9 Major depressive disorder, single episode, unspecified; Z95.820 Peripheral vascular angioplasty status with implants and grafts; Z79.4 Long term (current) use of insulin; Y83.5 Amputation of limb(s) as the cause of abnormal reaction of the patient, or of later complication, without mention of misadventure at the time of the procedure ==

== ENCOUNTER → 2018-08-03 | Outpatient (CLI) | payer OTHER | LOC: HYPER 07:48 | DX: S91.104A Unspecified open wound of right lesser toe(s) without damage to nail, initial encounter (principal); I70.263 Atherosclerosis of native arteries of extremities with gangrene, bilateral legs; E11.51 Type 2 diabetes mellitus with diabetic peripheral angiopathy without gangrene; E11.39 Type 2 diabetes mellitus with other diabetic ophthalmic complication; H40.9 Unspecified glaucoma; E78.5 Hyperlipidemia, unspecified; E07.89 Other specified disorders of thyroid; I25.2 Old myocardial infarction; J45.909 Unspecified asthma, uncomplicated; K21.9 Gastro-esophageal reflux disease without esophagitis; M19.90 Unspecified osteoarthritis, unspecified site; F17.210 Nicotine dependence, cigarettes, uncomplicated; F41.9 Anxiety disorder, unspecified; F32.9 Major depressive disorder, single episode, unspecified; Z95.820 Peripheral vascular angioplasty status with implants and grafts; Z79.4 Long term (current) use of insulin; X58.XXXA Exposure to other specified factors, initial encounter; Y93.89 Activity, other specified; Y92.89 Other specified places as the place of occurrence of the external cause; Y99.8 Other external cause status ==

== ENCOUNTER → 2018-08-26 | Outpatient (CLI) | payer OTHER | LOC: HYPER 08-19 06:53 | DX: T81.31XD Disruption of external operation (surgical) wound, not elsewhere classified, subsequent encounter (principal); E11.621 Type 2 diabetes mellitus with foot ulcer; L97.522 Non-pressure chronic ulcer of other part of left foot with fat layer exposed; S91.104A Unspecified open wound of right lesser toe(s) without damage to nail, initial encounter; L84 Corns and callosities; I70.262 Atherosclerosis of native arteries of extremities with gangrene, left leg; I70.261 Atherosclerosis of native arteries of extremities with gangrene, right leg; E11.39 Type 2 diabetes mellitus with other diabetic ophthalmic complication; H40.9 Unspecified glaucoma; E07.89 Other specified disorders of thyroid; E78.5 Hyperlipidemia, unspecified; I25.2 Old myocardial infarction; J45.909 Unspecified asthma, uncomplicated; K21.9 Gastro-esophageal reflux disease without esophagitis; M19.90 Unspecified osteoarthritis, unspecified site; F41.9 Anxiety disorder, unspecified; F32.9 Major depressive disorder, single episode, unspecified; F17.210 Nicotine dependence, cigarettes, uncomplicated; Z79.4 Long term (current) use of insulin; Z95.820 Peripheral vascular angioplasty status with implants and grafts; W22.8XXA Striking against or struck by other objects, initial encounter; Y93.89 Activity, other specified; Y92.89 Other specified places as the place of occurrence of the external cause; Y99.8 Other external cause status ==

== ENCOUNTER → 2018-12-10 | Outpatient (CLI) | payer OTHER ==
[~2018-12-10] VITALS: Ht 160 cm; Wt 92.5 kg
[~2018-12-10] MED LIST changes: +CRESTOR20 MG PO; +CYMBALTA60 MG PO; +LISINOPRIL10 MG PO; +METFORMIN HCL500 MG PO; +VICTOZA0.6 MG/0.1 SUBQ
[2018-12-10 09:42] LABS: HEMATOCRIT 43.5 % (37.0-47.0); HEMOGLOBIN 14.5 gm/dL (12.0-15.0); MCH 28.5 pg (26.0-34.0); MCHC 33.3 g/dL (28.0-37.0); MCV 85.6 fL (80.0-100.0); RBC 5.09 mil/uL (4.20-5.00); WBC 12.7 thou/uL (4.0-11.0)
[2018-12-10 09:49] LABS: CALCIUM 9.7 mg/dL (8.5-10.1); CREATININE 0.9 mg/dL (0.6-1.0); POTASSIUM 4.3 mmol/L (3.5-5.1)
[2018-12-10 09:53] VITALS: BP 111/56
== END | disposition home or self-care (01) ==
LOC: SPEC 09:11
PROVIDERS: Nuclear Medicine Nuclear Cardiology
DX: I65.23 Occlusion and stenosis of bilateral carotid arteries (principal); I70.1 Atherosclerosis of renal artery; I73.89 Other specified peripheral vascular diseases; I10 Essential (primary) hypertension; I25.2 Old myocardial infarction; E11.40 Type 2 diabetes mellitus with diabetic neuropathy, unspecified; J45.909 Unspecified asthma, uncomplicated; E78.5 Hyperlipidemia, unspecified; K21.9 Gastro-esophageal reflux disease without esophagitis; F17.210 Nicotine dependence, cigarettes, uncomplicated; Z98.890 Other specified postprocedural states; Z86.718 Personal history of other venous thrombosis and embolism; Z79.01 Long term (current) use of anticoagulants; Z88.8 Allergy status to other drugs, medicaments and biological substances; Z79.82 Long term (current) use of aspirin; Z79.899 Other long term (current) drug therapy

== ENCOUNTER 2019-03-06 11:10 | Inpatient (IN) | payer OTHER ==
[~2019-03-06] VITALS: Ht 160 cm; Wt 89.8 kg
[2019-03-06 11:12] VITALS: BP 139/70
[2019-03-06 11:38] LABS: HEMATOCRIT 41.2 % (37.0-47.0); HEMOGLOBIN 13.6 gm/dL (12.0-15.0); MCH 28.7 pg (26.0-34.0); MCHC 33.1 g/dL (28.0-37.0); MCV 86.8 fL (80.0-100.0); PLATELET COUNT 333 thou/uL (150-400); RBC 4.75 mil/uL (4.20-5.00); RDW 15.1 % (10.5-14.5); WBC 25.2 thou/uL (4.0-11.0)
[2019-03-06 11:43] LABS: CALCIUM 9.1 mg/dL (8.5-10.1); CREATININE 1.4 mg/dL (0.6-1.0); POTASSIUM 5.1 mmol/L (3.5-5.1)
[2019-03-06 11:49] LABS: ALBUMIN 2.9 g/dL (3.4-5.0); TOTAL BILIRUBIN 0.5 mg/dL (<0.1-1.0); TOTAL PROTEIN 7.1 g/dL (6.4-8.2)
[2019-03-06 11:53] LABS: PROTIME 10.3 Seconds (9.3-11.4)
[2019-03-06 12:05] LABS: URINE BLOOD 1+ (Negative); URINE CLARITY CLEAR; URINE COLOR YELLOW; URINE GLUCOSE-RANDOM* 3+ (Negative); URINE KETONES 1+ (Negative); URINE LEUKOCYTES-REFLEX NEGATIVE (Negative); URINE NITRITE-REFLEX NEGATIVE (Negative); URINE PROTEIN (DIPSTICK) 1+ (Negative); URINE SPECIFIC GRAVITY 1.025 (1.005-1.035); URINE UROBILINOGEN 0.2 E.U./dl (0.2-1.0)
[2019-03-06 12:07] LABS: ICTOTEST (BILI CONFIRMATORY) Negative (Negative); URINE BILIRUBIN NEGATIVE (Negative)
[2019-03-06 12:15] LABS: BACTERIA-REFLEX >30 Many /HPF (None Seen); CASTS None Seen /LPF (None Seen); SQUAMOUS 4-10 Moderate /LPF (0-3); URINE RBC 0-2 Rare /HPF (0-2)
[2019-03-06] MEDS ORDERED: LISINOPRIL5 MG PO (12:15)
[2019-03-06 12:16] LABS: CRYSTALS None Seen /LPF (None Seen); URINE WBC-REFLEX 6-15 Few /HPF (0-5); WBC CLUMPS Few (None Seen)
[2019-03-06] MEDS ORDERED: HUMALOG100 UNIT/1 SUBQ (12:16)
[2019-03-06] MEDS ORDERED: ELIQUIS5 MG PO (12:16)
[2019-03-06] MEDS ORDERED: LANTUS100 UNIT/M SUBQ (12:17)
[2019-03-06] MEDS ORDERED: TRAVATAN Z2.5 ML OPHTHALMIC (12:17)
[2019-03-06] MEDS ORDERED: ARTIFICIAL TEA1 EAC1 OPHTHALMIC (12:19)
[2019-03-06] MEDS ORDERED: COSOPT OCUMETER10 M1 OP (12:19)
[2019-03-06 12:21] LABS: ABSOLUTE NEUTROPHILS 21.4 thou/uL (1.4-8.2)
[2019-03-06 14:18] VITALS: BP 139/70
[2019-03-06 14:35] LABS: AMP/METHAMP Negative (Negative); BARBITURATES Negative (Negative); BENZODIAZEPINES Negative (Negative); COCAINE Negative (Negative); METHADONE Negative (Negative); OPIATES POSITIVE (Negative); PCP Negative (Negative)
[2019-03-06 16:24] VITALS: BP 125/62
--- NOTE | 2019-03-06 18:23 | NUR ---
PT NPO, ASKING FOR WATER, EXPLAINED TO HER THAT SHE IS NPO PER DR LOZANO, SHE STARTED THROWING A TEMPER TANTRUM, FLAILING ARMS AND LEGS ABOUT. PT ASKING FOR ICE CHIPS A WHILE AFTER THAT. PAGED DR VALDEZ AND HE SAID SHE COULD HAVE A FEW ICE CHIPS. WENT TO ROOM TO TELL PT ABOUT ICE CHIPS AND SHE SAID SHE HAD TO GO TO THE BATHROOM. WALKED PT TO BATHROOM, INSTRUCTED HER TO PULL STRING WHEN DONE, LEFT ROOM TO GET ICE CHIPS, RETURN TO HELP PT OUT OF BATHROOM AND FOUND HER DRINKING SOME WATER WITH HER HANDS OUT OF THE SINK.
[2019-03-06 19:52] VITALS: BP 142/45
--- NOTE | 2019-03-07 04:12 | NUR ---
PT AMBULATING TO BATHROOM INDEPENDENTLY AND IS TOLERATING FAIR. MORPHINE PROVIDING PAIN RELIEF. RESTING COMFORTABLY. NO NEEDS VOICED. CALL LIGHT WITHIN REACH. WILL CONTINUE TO PROVIDE FREQUENT OBDERVATION.
[2019-03-07 04:31] VITALS: BP 107/41
[2019-03-07 05:00] LABS: HEMATOCRIT 34.3 % (37.0-47.0); MCH 28.6 pg (26.0-34.0); MCHC 32.6 g/dL (28.0-37.0); MCV 87.6 fL (80.0-100.0); RBC 3.92 mil/uL (4.20-5.00); RDW 14.6 % (10.5-14.5); WBC 19.9 thou/uL (4.0-11.0)
[2019-03-07 05:02] LABS: HEMOGLOBIN 11.2 gm/dL (12.0-15.0)
[2019-03-07 05:20] LABS: CALCIUM 8.4 mg/dL (8.5-10.1); CREATININE 0.9 mg/dL (0.6-1.0); POTASSIUM 4.2 mmol/L (3.5-5.1)
--- NOTE | 2019-03-07 08:00 | EKG ---
[address] [address] ELECTROCARDIOGRAM REPORT Name: EULOGIO RUIZ Room #: 211-P ADM IN M.R.#: [id number] ������������������ Admission: 03/06/19 ������������������ Attend Phys: Jona Wall MD Discharge: ������������������ Date of : 62 Report #: [id number] ����������������������������������������������������������������� [id number] THIS REPORT FOR: //name// 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 : 1960 Requested By: Maxx Garcia Order Number: [id number] MD: Parish Tomlinson Measurements Intervals [place] Rate: 93 P: 46 NE: 155 QRS: -33 QRSD: 108 T: 84 QT: 376 QTc: 468 Interpretive Statements Sinus rhythm Inferior infarct, old Compared to ECG 11/04/2017 23:39:17 Left ventricular hypertrophy no longer present Poor R-wave progression no longer present Myocardial infarct finding still present Electronically Signed On 03-07-2019 8:00:42 CDT by Parish Tomlinson [email or web address] ��������������������������������������������� <ELECTRONICALLY SIGNED> ���������������������������������������� By: Parish Tomlinson MD ��������������������������������������������� 03/07/19 0800 1235 1235 Parish Tomlinson MD /EPI
[2019-03-07 08:11] VITALS: BP 114/55
--- NOTE | 2019-03-07 12:20 | 2DMMODE ---
[facility] [address] [place] [address] 2 D/M-MODE ECHOCARDIOGRAM Name: LOVELANDEULOGIO Room #: 211-P ADM IN ..#: [id number] ������������� Admission: 03/06/19 ������������� Attend Phys: Jona Wall MD Discharge: ��� ������������� ��� Date of : 62 Date of Service: 03/07/19 1220 �� Report #: [id number] �������� ��������������������������������������������[id number] THIS REPORT FOR: //name// APPROVED REPORT Study performed: 03/07/2019 11:23:15 EXAM: Comprehensive 2D, Doppler, and color-flow Echocardiogram Patient Location: Bedside Room #: [facility] Status: routine BSA: 1.90 HR: 73 bpm BP: 107/41 mmHg Rhythm: NSR Other Information Study Quality: Adequate Indications CAD, Sepsis. Hx: Stents, PAD, DM, HTN, HLP. Echo Enhancing Agent Indication: Endocardial border delineation Agent(s) / Amount(s) Used: Optison 5 cc 2D Dimensions RVDd: 38.92 mm IVSd: 10.29 (7-11mm) LVOT Diam: 20.66 (18-24mm) LVDd: 52.46 mm PWd: 10.70 (7-11mm) Ascending Ao: 37.62 (22-36mm) LVDs: 43.49 (25-40mm) Aortic Root: 35.24 mm Volumes Left Atrial Volume (Systole) Single Plane 4CH: 53.23 mL Single Plane 2CH: 58.87 mL LA ESV Index: 32.00 mL/m2 Aortic Valve AoV Peak Perfecto.: 1.35 m/s AO Peak Gr.: 7.32 mmHg LVOT Max P.34 mmHg LVOT Max V: 0.91 m/s JUWAN Vmax: 2.26 cm2 [facility] [address] [place] [address] 2 D/M-MODE ECHOCARDIOGRAM Name: [facility] Room #: [facility] IN .R.#: [id number] ������������� Admission: 03/06/19 ������������� Attend Phys: Jona Wall MD Discharge: ��� ������������� ��� Date of : 62 Date of Service: 03/07/19 1220 �� Report #: [id number] �������� ��������������������������������������������[id number] Mitral Valve E/A Ratio: 1.2 MV Decel. Time: 149.25 ms MV E Max Perfecto.: 1.28 m/s MV A Perfecto.: 1.10 m/s MV PHT: 43.28 ms IVRT: 69.20 ms Pulmonary Valve PV Peak Perfecto.: 0.68 m/s PV Peak Gr.: 1.85 mmHg Pulmonary Vein P Vein S: 0.61 m/s P Vein A: 0.38 m/s P Vein D: 0.60 m/s P Vein A Dur.: 92.3 msec P Vein S/D Ratio: 1.02 Left Ventricle The left ventricle is normal size. Regional wall motion abnormalities are noted. There is normal left ventricular wall thickness. Left ventricular systolic function is mildly decreased. LVEF is 45%. Moderate diastolic dysfunction is present (pseudonormal filling). Right Ventricle The right ventricle is normal size. The right ventricular systolic function is normal. Atria The left atrium size is normal. The right atrium size is normal. Aortic Valve The aortic valve is normal in structure. No aortic regurgitation is present. There is no aortic valvular stenosis. Mitral Valve The mitral valve is normal in structure. Mild mitral annular calcification. There is no mitral valve regurgitation noted. No evidence of mitral valve stenosis. Tricuspid Valve The tricuspid valve is normal in structure. There is no tricuspid valve regurgitation noted. Unable to assess PA pressure. Pulmonic Valve The pulmonary valve is normal in structure. Mild pulmonic [address] [address] 2 D/M-MODE ECHOCARDIOGRAM Name: [facility] Room #: 211-P [facility] IN [facility]#: [id number] ������������� Admission: 03/06/19 ������������� Attend Phys: Jona Wall MD Discharge: ��� ������������� ��� Date of : 62 Date of Service: 03/07/19 1220 �� Report #: [id number] �������� ��������������������������������������������[id number] regurgitation. Great Vessels The aortic root is normal in size. The ascending aorta is borderline dilated. IVC is normal in size and collapses >50% with inspiration. Pericardium There is no pericardial effusion. <Conclusion> The left ventricle is normal size. LVEF is 45%. Regional wall motion abnormalities are noted. The aortic valve is normal in structure. The mitral valve is normal in structure. Mild mitral annular calcification. There is no mitral valve regurgitation noted. The tricuspid valve is normal in structure. There is no tricuspid valve regurgitation noted. Unable to assess PA pressure. The pulmonary valve is normal in structure. Mild pulmonic regurgitation. The ascending aorta is borderline dilated. There is no pericardial effusion. ��������������������������������������������� <ELECTRONICALLY SIGNED> ���������������������������������������� By: Michel Schuster MD ��������������������������������������������� 03/07/19 1220 1220 1220 Michel Schuster MD /INF
[2019-03-07 13:04] VITALS: BP 152/75
--- NOTE | 2019-03-07 16:36 | NUR ---
VSS T MAX 99.2, NSR PT REMAINS WITH ABDOMINAL PAIN AND NAUSEA, RELIEVED WITH IV MS AN ZOFRAN. PT REMAINS NPO. NO FURTHER LOOSE BM TODAY, STILL NEED STOOL FOR CDIFF. LUNGS CLEAR RA SAT IS 92-96%. UP TO BRP WITH SBA, STEADY ON FEET .WILL CONTINUE TO MONITER AND CARE OF PT PER PLANOF CARE
[2019-03-07 17:21] VITALS: BP 108/55
[2019-03-07 20:05] VITALS: BP 100/42
[2019-03-08 01:10] LABS: GLYCOHEMOGLOBIN (HGB A1C) 8.2 % (4.8-5.6)
--- NOTE | 2019-03-08 05:08 | NUR ---
ASSUMED PT CARE AT 1900 WITH NO SIGN OF DISTRESS NOTED. PT IS ALERT AND ORIENTED. NO FAMILY AT BEDSIDE. PT COMPLAINS OF ABDOMINAL PAIN AND NAUSEA. ASSESSMENT COMPLETED AND DOCUMENTED. PT IS NPO EXCEPT FOR ICE CHIPS (SPARINGLY). PT IS STRICT NPO AFTER MN. SCHEDULED MEDS ADMINISTERED TO PT. PT IS STABLE. NO FURTHER NEEDS REQUESTED AT THIS TIME.
[2019-03-08 05:38] VITALS: BP 126/49
[2019-03-08 07:31] LABS: HEMATOCRIT 33.3 % (37.0-47.0); MCH 28.3 pg (26.0-34.0); MCV 85.8 fL (80.0-100.0); RBC 3.88 mil/uL (4.20-5.00); RDW 14.3 % (10.5-14.5); WBC 15.5 thou/uL (4.0-11.0)
[2019-03-08 07:33] VITALS: BP 122/56
[2019-03-08 07:43] LABS: ALBUMIN 2.2 g/dL (3.4-5.0); CALCIUM 8.2 mg/dL (8.5-10.1); CREATININE 0.8 mg/dL (0.6-1.0); MAGNESIUM 1.3 mg/dL (1.8-2.4); PHOSPHORUS 2.2 mg/dL (2.5-4.9); POTASSIUM 3.9 mmol/L (3.5-5.1)
[2019-03-08 07:46] LABS: ALBUMIN 2.2 g/dL (3.4-5.0); DIRECT BILIRUBIN 0.2 mg/dL (<0.1-0.3); TOTAL BILIRUBIN 0.3 mg/dL (<0.1-1.0); TOTAL PROTEIN 5.7 g/dL (6.4-8.2)
--- NOTE | 2019-03-08 10:13 | HC ---
[facility] [place] [address] [place] [address] CONSULTATION Name: EULOGIO RUIZ Room #: [facility] IN M.R.#: [id number] Admission: 03/06/19 ������������������ Attend Phys: Jona Wall MD Discharge: ������������������ Date of : 62 Report #: [id number] THIS REPORT FOR: //name// CC: Jona Conte DATE OF SERVICE: 03/07/2019 ENDOCRINE CONSULTATION NOTE CONSULTING PHYSICIAN: Dr. Jona Wall. REASON FOR CONSULTATION: Uncontrolled type 2 diabetes mellitus. HISTORY OF PRESENT ILLNESS: This is a 58-year-old female patient whose medical background is noted for multiple medical issues including peripheral arterial disease, hypertension, hyperlipidemia and type 2 diabetes mellitus. The patient presented yesterday with an outlook that was noted for abdominal pain, nausea, vomiting, dating to a couple of days before presentation. Subsequently, she was admitted for further monitoring and management. When I saw the patient, she was fairly tired and sleepy and kept elapsing out on a lot of details that I asked her about, but noted that she has had diabetes mellitus for a very long time. She noted that she is insulin-dependent and is on a combination of Lantus insulin and unknown dosage as well as Humalog insulin again unknown dosage, but also takes Victoza at a dose of 1.8 mg daily. The patient said that her blood glucose values fluctuate often, but denied active or frequent issues with hypoglycemia. The patient noted occasional issues with numbness and tingling in her feet and hands. She is not aware of kidney dysfunction difficulties and believes that she might have had a heart attack in the past. REVIEW OF SYSTEMS: CONSTITUTIONAL: Fatigue, tiredness, but no fever or chills. No significant body weight changes. PULMONARY: No shortness of breath, cough or hemoptysis. CARDIAC: No chest pain, palpitations, syncope or presyncope. GASTROINTESTINAL: Noted for abdominal discomfort, nausea, vomiting, diarrhea, possible blood in stool. MUSCULOSKELETAL: Scattered joint and muscle aches. No deformities. NEUROLOGIC: Lightheadedness, dizziness, but no loss of consciousness or seizure activity. PSYCHIATRIC: No delusions, hallucinations. SKIN: No rash or ulceration. HEMATOLOGY: No bruising or easy bleeding. Otherwise, review of systems noncontributory other than those mentioned in HPI. [address] [address] CONSULTATION Name: [facility] Room #: [address] [place] [address] IN M.R.#: [id number] Admission: 03/06/19 ������������������ Attend Phys: Jona Wall MD Discharge: ������������������ Date of : 62 Report #: [id number] MEDICAL HISTORY: 1. Type 2 diabetes mellitus. 2. Peripheral arterial disease, status post lower extremity stent placement. 3. Peripheral vascular disease. 4. Diabetic peripheral neuropathy. 5. Seasonal allergies. 6. Hyperlipidemia. 7. Glaucoma. 8. Hypertension. 9. CAD with SC and two stent placements in 2010. 10. Asthma. OUTPATIENT MEDICATIONS: Include lisinopril 5 mg daily; Eliquis 5 mg b.i.d.; Humalog insulin, unknown dosage, but she takes before meals; Lantus insulin, unknown dosage, she takes at night; Victoza 1.8 mg daily; Travatan eyedrops; Cosopt eyedrops; metformin 500 mg or 1000 mg b.i.d.; aspirin 81 mg daily; Cymbalta 60 mg daily; Lyrica 50 mg t.i.d.; Singulair 10 mg daily; Crestor 20 mg daily. ALLERGIES: She is allergic to TETANUS and DIPHTHERIA TOXOID. FAMILY HISTORY: Noncontributory. SOCIAL HISTORY: The patient lives with her mother and brother. Denies use of alcohol, but does smoke cigarettes. PHYSICAL EXAMINATION: GENERAL: This is a middle-aged female patient who appears a bit uncomfortable, but not in pain or distress. VITAL SIGNS: Blood pressure is 107/41 mmHg, heart rate is 80 beats per minute, respirations 16 per minute, temperature 36.9 degrees. HEENT: Anicteric sclerae. Intact extraocular motions. CONSTITUTIONAL: Awake, alert, not in apparent distress, but appears uncomfortable. NECK: Supple, without JVD, carotid bruits or lymphadenopathy. I do not appreciate thyromegaly. CHEST: Noted for moderate air entry bilaterally with scattered rales and rhonchi. HEART: Regular rate and rhythm without murmurs or gallops. ABDOMEN: Distended, but soft and lax. The patient reports a generalized mild tenderness to palpation, but without guarding. Active bowel sounds. EXTREMITIES: Noted for right fifth toe amputation. Faint pedal pulses, stasis dermatitis changes. NEUROLOGIC: Awake, alert and oriented to time, place and person. The remainder of her examination is noted mostly for sensory deficits over both lower [facility] [address] [place] [address] CONSULTATION Name: [facility] Room #: 211-P ADM IN M.R.#: [id number] Admission: 03/06/19 ������������������ Attend Phys: Jona Wall MD Discharge: ������������������ Date of : 62 Report #: [id number] extremities. PSYCHIATRIC: Appears anxious, restless, but with normal mood and affect, interactive, able to answer my questions appropriately. LABORATORY RESULTS: Blood glucose values have run from 170-390 mg/dL. Otherwise, sodium 139, potassium 4.2, chloride 104, CO2 of 24, anion gap 11, BUN 26, creatinine 0.9. Lipase 48. Total bilirubin 0.5, calcium 8.4, magnesium 1.6, alkaline phosphatase 96, ALT 54, total protein 7.1, albumin 2.9, GFR 65. Lactic acid 2.2. Total cholesterol 177, triglycerides 108, HDL 39, LDL 117. INR 1.0. White blood count 19.9, hemoglobin 11.2, hematocrit 34.3, platelets 291. Hemoglobin A1c on record from 10/2017 was 13.7. ASSESSMENT AND PLAN: 1. Type 2 diabetes mellitus, uncontrolled. The patient has an uncontrolled diabetic baseline as per her historic documentation of severely elevated blood glucose values as well as the documentation of several end-organ complications. The patient was counseled about the necessity of achieving and maintaining adequate blood glucose control so as to contain and prevent the progression of these complications. The patient's regimen at home is insulin based and consists of basal bolus regimen. I believe that we ought to proceed to the same model while she is here in the hospital. That said, in addition to the ongoing coverage with Humalog supplemental scale, I will start coverage with Lantus insulin 15 units daily in addition to coverage of meals with 6 units of Humalog t.i.d. before meals. Blood glucose monitoring will continue before meals and at bedtime to assess the patient's progress and adjust her regimen as needed. Also, I will obtain a hemoglobin A1c to update her overall state of glycemic control. 2. Hyperlipidemia. The patient is currently on atorvastatin 20 mg daily and tolerates it well, she is to continue the same. 3. Hypothyroidism. The patient has a history of partial thyroidectomy. I will check thyroid function tests to ensure the stability of her function in view of this information. 4. Peripheral diabetic neuropathy. The patient is currently on treatment with Lyrica 100 mg t.i.d., she is to maintain this line of treatment. I certainly appreciate this consultation by Dr. Wall. ��������������������������������������������� <ELECTRONICALLY SIGNED> ���������������������������������������� By: Anita Katz MD ��������������������������������������������� 03/08/19 1013 1049 1200 Anita Katz MD /nt
[2019-03-08 11:51] VITALS: BP 98/34; BP 98/64
[2019-03-08 12:44] VITALS: BP 136/59
[2019-03-08 13:41] LABS: CALCIUM 8.1 mg/dL (8.5-10.1); CREATININE 0.8 mg/dL (0.6-1.0); MAGNESIUM 1.4 mg/dL (1.8-2.4); PHOSPHORUS 2.3 mg/dL (2.5-4.9)
[2019-03-08 15:56] VITALS: BP 100/73
--- NOTE | 2019-03-08 18:37 | NUR ---
PT CARE ASSUMED APPROX 0700. PT ALERT AND ORIENTED X4. DENIES CHEST PAIN AND SOA. REPORTS ABD PAIN THAT SHE WAS ADMITTED WITH. PAIN MANAGEMENT REGIMINE ADJUSTED FOR BETTER PAIN CONTROL. PT REPORTS MORE RELIEF. DIAGNOSTIC STUDY COMPLETED AND SURGEON HOLDING OFF ON SURGERY AT THIS TIME. BILI DRAIN WAS ORDERED TO BE PLACED BUT IR WANTED PT TO BE OFF ANTICOAGS AND ANTIPLT THERAPY FOR ONE MORE SAY. PT NPO AFTER MN. PT AWARE AND DENIES QUESTIONS OR CONCERNS REGARDING POC. PT TOLERATING CLD. MAG AND PHOS LEVELS REPLACED. ORDERS IN PER PRIMARY TO RECHECK LEVELS IN THE AM. PT REMAINS ON IVF AND ABT. PT TOLERATING WELL. STOOL SPECIMEN WAS UNABLE TO COLLECTED BECAUSE PT IS ONLY HAVING MUCOUS STOOLS. GI DR AWARE AND IS AGREEABLE TO WAIT FOR MORE FORMED STOOL TO SEND TO LAB. PT UP WITH SBA. NO DISTRESS NOTED.
[2019-03-08 20:21] VITALS: BP 162/74
[2019-03-09 04:47] VITALS: BP 168/88
[2019-03-09 06:01] LABS: HEMATOCRIT 36.6 % (37.0-47.0); HEMOGLOBIN 11.9 gm/dL (12.0-15.0); MCH 28.2 pg (26.0-34.0); MCHC 32.5 g/dL (28.0-37.0); MCV 86.8 fL (80.0-100.0); RBC 4.21 mil/uL (4.20-5.00); RDW 14.2 % (10.5-14.5); WBC 12.9 thou/uL (4.0-11.0)
--- NOTE | 2019-03-09 06:24 | NUR ---
PT a&o X4 ABLE TO MAKE BASIC NEEDS KNOWN. ACCU CHECKS ACHS HS BS 165 INSULIN HELD PT NPO AFTER MIDNITE FOR A PROCEDURE THIS AM. HAS BEEN ON CLEAR LIQUID. SBA WITH TRANSFER. CONTINUES ON CONTACT ISOLATION C-DIFF. NO BM OVERNITE. STILLS NEEDS STOOL SAMPLE COLLETED.
[2019-03-09 06:29] LABS: CREATININE 0.7 mg/dL (0.6-1.0); MAGNESIUM 1.6 mg/dL (1.8-2.4); PHOSPHORUS 2.5 mg/dL (2.5-4.9); POTASSIUM 4.3 mmol/L (3.5-5.1)
[2019-03-09 08:07] LABS: APTT 23.9 Seconds (24.5-32.8)
[2019-03-09 09:59] VITALS: BP 186/88
[2019-03-09 11:45] VITALS: BP 120/72
--- NOTE | 2019-03-09 12:11 | NUR ---
Met with patient who admits with colitis, has biliary drain. Likely home with drain. Patient lives in home with brother and mother. 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 Her brother with prev stroke. [employer] patient independent with adls. PCP is Dr Conte. Discussed Home Health with patient and she does not believe necessary. She reports she can rec education for drain and f/u as outpatient. Left list of HH agencies if phys deems approprate to have [place] [facility] following.
--- NOTE | 2019-03-09 17:00 | NUR ---
ASSUMMED PT CARE AT APPROXIMATELY 0700. PT A&O X4. ASSESSMENT CHARTED. FALL PRECAUTIONS IN PLACE. VITAL SIGNS STABLE. BLOOD SUGARS STABLE. PT MISSED POST BILIARY VS IN CHART DUE TO PT ENROUTE TO CT BEING DONE TO RULE OUT INTRA ABD BLEEDING POST DRAIN PLACEMENT AND THEN WENT TO EGD, PT VS WERE STABLE. PT DENIES CHEST PAIN. PT DENIES SOB. PT DOES HAVE PAIN IN GENERALIZED ABD AREA. PT RECEIVING ANALGESICS FOR PAIN. PT STATES PAIN DECREASES C ANALGESICS. PT AMBULATES STEADY/INDEPENDENT. PT'S JAVIER TUBE SITE CDI. DRAIN PATENT. PT EDUCATED ABOUT POC. PT DENIED HAVING FURTHER QUESTIONS AND STATED UNDERSTANDING. PT'S TOLERATING DIET CHANGE TO SOFT DIET.
[2019-03-09 19:22] VITALS: BP 136/65
[2019-03-10 04:19] VITALS: BP 132/70
--- NOTE | 2019-03-10 05:01 | NUR ---
Assumed pt care at 1900 with no sign of distress noted in pt. Pt is alert and oriented. Pt complains of abdominal pain. No sign of distress noted. Pt is stable. Assessment completed and documented. Scheduled meds administered to pt. Denies any further needs at this time,.
[2019-03-10 05:33] LABS: CALCIUM 8.4 mg/dL (8.5-10.1); CREATININE 0.7 mg/dL (0.6-1.0); MAGNESIUM 1.6 mg/dL (1.8-2.4); PHOSPHORUS 2.1 mg/dL (2.5-4.9); POTASSIUM 3.7 mmol/L (3.5-5.1)
[2019-03-10 05:37] LABS: HEMATOCRIT 37.9 % (37.0-47.0); HEMOGLOBIN 12.3 gm/dL (12.0-15.0); MCH 28.1 pg (26.0-34.0); MCHC 32.4 g/dL (28.0-37.0); RBC 4.36 mil/uL (4.20-5.00); RDW 14.6 % (10.5-14.5); WBC 14.3 thou/uL (4.0-11.0)
[2019-03-10 08:00] VITALS: BP 121/57
--- NOTE | 2019-03-10 10:48 | P ---
[facility] [place] [address] PROCEDURE REPORT Name: EULOGIO RUIZ Room #: 211-P [facility] IN M.R.#: [id number] Admission: 03/06/19 ������������������ Attend Phys: Jona Wall MD Discharge: ������������������ Date of : 62 Report #: [id number] THIS REPORT FOR: //name// CC: Jona Conte MD PROCEDURE: EGD WITH BIOPSY PATIENT OF: Dr. Dylan Conte and Dr. Jona Wall. INDICATION FOR PROCEDURE: This patient has had right upper quadrant pain, bloody diarrhea. CT shows a sigmoid colitis. She has diffuse vasculopathy and she is thought to have an acute cholecystitis, and cholecystostomy tube was placed today prior to these procedures. The etiology of all of this, including anemia, is unclear. An EGD and flexible sigmoidoscopy are being performed to evaluate for possible etiologies. Informed consent for this procedure was obtained prior to the administration of any medication. The risks of the procedure, which include but are not limited to the following: Bleeding, perforation, infection, complications of sedation and the possibility I could miss something were explained to the patient and she has indicated her consent by signing. Anesthesia kindly provided deep sedation for these procedures. DESCRIPTION OF PROCEDURE: With the patient in the left lateral decubitus position, a distal rectal exam was performed and no abnormalities other than some skin tags were palpated. Then, the Olympus upper videoscope was introduced through the anal sphincter and advanced under direct visualization to the distal transverse colon. Findings are noted on withdrawal of the scope. The distal transverse colon, colonic mucosa appears normal. There is a change gradually from a normal mucosa to an intermittently ulcerated mucosa and finally to a totally ulcerative colon in the descending colon and sigmoid. Biopsies were obtained from the descending colon for histopathology to evaluate for possible ischemic colitis, which I suspect this is, as it is a segmental colitis. This ulcerated mucosa continues all the way down to the upper rectum, which begins about 10 cm above the anal verge. The distal rectum appears normal. Retroflexed view does not reveal any other abnormalities other than a line of demarcation between the inferior mesenteric artery and the rectal arteries above which ulcerations exist and below which the mucosa appears more normal. The scope was withdrawn after retroflexion. No other abnormalities were seen. The patient went to the recovery room in stable condition. She tolerated the procedure well. IMPRESSION: Ulcerated segmental colitis, nonbleeding from the upper rectum up to the distal transverse colon. Biopsies obtained for histopathology to [address] [address] PROCEDURE REPORT Name: [facility] Room #: 211-P [facility] IN [facility].#: [id number] Admission: 03/06/19 ������������������ Attend Phys: Jona Wall MD Discharge: ������������������ Date of : 62 Report #: [id number] evaluate for possible ischemia, which I think is the most likely diagnosis. Good hemostasis was noted after the biopsies. My recommendations would be for her to await the biopsy results. She should be on broad-spectrum antibiotics. I think evaluation of her mesenteric arteries, specifically inferior mesenteric artery, should be undertaken during her cardiac catheterization if possible. It may require a stent. Thank you very much once again for allowing me to participate in her care, Dr. Conte. ��������������������������������������������� <ELECTRONICALLY SIGNED> ���������������������������������������� By: Radha Stroud DO ��������������������������������������������� 03/10/19 1048 1541 0039 Radha Stroud DO /nt
--- NOTE | 2019-03-10 10:48 | P ---
[facility] [place] [address] PROCEDURE REPORT Name: EULOGIO RUIZ Room #: 211-P ADM IN M.R.#: [id number] Admission: 03/06/19 ������������������ Attend Phys: Jona Wall MD Discharge: ������������������ Date of : 62 Report #: [id number] THIS REPORT FOR: //name// CC: Geovany Conte MD DATE OF SERVICE: 03/09/2019 FLEXIBLE SIGMOIDOSCOPY WITH BIOPSIES PATIENT OF: Dr. Dylan Conte, Dr. Jona Wall. INDICATION FOR PROCEDURE: This patient had painless hematochezia. She appears to have a segmental colitis on CT scan. Flexible sigmoidoscopy is being obtained to evaluate for possible ischemic colitis. Informed consent for this procedure was obtained prior to the administration of any medication. The risks of the procedure which include bleeding, perforation, infection, complications of sedation and the possibility I could miss something have been explained to the patient and she has indicated her consent by signing. Propofol was slowly titrated before and during this procedure for patient comfort by the anesthesia service. DESCRIPTION OF PROCEDURE: With the patient in the left lateral decubitus position, a digital rectal exam was performed and no abnormalities were palpated. Then, the Olympus upper videoscope was introduced through the anal sphincter and advanced under direct visualization to the distal transverse colon. Findings are noted on withdrawal of the scope. The more proximal transverse colon appears normal and then there is a gradual loom changeover operator to an ulcerated mucosa that is 360 degrees at the splenic flexure. This pattern extends all the way down to the upper rectum at approximately 10 cm from the anal verge. Biopsies were obtained x 2 from the descending colonic mucosa for histopathology. Good hemostasis was noted after those biopsies. Then, the scope was brought down through the entire left colon and sigmoid and ulcerations only are seen. In the rectum, there is an abrupt loom changeover operator to a normal mucosa signaling the beginning of the coverage of the rectal arteries. Retroflex view did not reveal any further abnormalities. The scope was withdrawn. The patient went to the recovery area in stable condition. She tolerated the procedure well. IMPRESSION: Segmental colitis of the left colon suggesting ischemic colitis. [facility] [address] [place] [address] PROCEDURE REPORT Name: [facility] Room #: 211-P ADM IN M.R.#: [id number] Admission: 03/06/19 ������������������ Attend Phys: Jona Wall MD Discharge: ������������������ Date of : 62 Report #: [id number] Biopsies pending. RECOMMENDATIONS: To await the biopsy results. She may benefit from mesenteric angiography and possible stent placement in the inferior mesenteric artery. Thank you very much once again for allowing me to participate in her care. ��������������������������������������������� <ELECTRONICALLY SIGNED> ���������������������������������������� By: Radha Stroud DO ��������������������������������������������� 03/10/19 1048 1601 0120 Radha Stroud DO /nt
[2019-03-10 12:00] VITALS: BP 111/54
[2019-03-10 16:00] VITALS: BP 131/58
--- NOTE | 2019-03-10 16:06 | PATH ---
[facility] [place] [address] PATHOLOGY RPT PROCEDURE Name: JANIE RUIZ Room #: 211-P ADM IN M.R.#: [id number] ������������������ Admission: 03/06/19 ������������������ Date of : 62 Discharge: Report #: [id number] Path Case #: [id number] [facility] Accession Number: [id number] . 01 Material submitted: . PART A: stomach - GASTRIC BX PART B: splenic flexure - BX SPLENIC FLEXURE . 01 Clinical history: . Pre-OP DX: Abdominal pain, possible ischemic colitis, abnormal CT Post-OP DX: Hemorrhagic gastritis, gastric ulcers, ischemic colitis . 02 Diagnosis: A. Gastric mucosa, rule out H. pylori, endoscopic biopsy: - Mild chronic gastritis with focal chronic inflammation. - Negative for intestinal metaplasia or atrophy. - Negative for Helicobacter pylori (properly controlled immunohistochemical stain performed). . B. Large intestinal mucosa, splenic flexure, rule out ischemia, endoscopic biopsy: - Mild acute colitis with lamina propria fibrosis (see comment); negative for dysplasia or malignancy. - One fragment of gastric mucosa with mild reactive gastropathy; negative for intestinal metaplasia or atrophy. (IUV:pit; 03/10/2019) QTP 03/10/2019 1311 Local . 02 Comment: Examination shows a rare focus of acute cryptitis in a background of fibrosed lamina propria. Fibrin thrombi are not identified within the lamina propria vessels. The surface epithelium appears increased, mildly regenerative and hyperplastic. Overall findings are nonspecific, and may represent a resolving episode of ischemic colitis, or acute as well as chronic diverticulitis. Ulceration, granulomata, viral inclusion or architectural abnormalities are not identified. Clinical correlation is suggested. (IUV:pit; 03/10/2019) . 02 Electronically signed: . Bertha Lang MD, Pathologist NPI- [id number] . 01 Gross description: . A. Received in formalin labeled "Janie Ruiz, gastric BX, rule out H. pylori," is a single segment of torres soft tissue measuring 0.7 cm in maximum dimension. The specimen is entirely submitted in [place] [address] PATHOLOGY RPT PROCEDURE Name: JANIE RUIZ Room #: 211-P ADM IN M.R.#: [id number] ������������������ Admission: 03/06/19 ������������������ Date of : 62 Discharge: Report #: [id number] Path Case #: [id number] . B. Received in formalin labeled "Janie Ruiz, BX splenic flexure, rule out ischemia," are 3 segments of torres soft tissue measuring 0.9 x 0.5 x 0.1 cm in aggregate dimensions and ranging from 0.3 to 0.6 cm in maximum dimension. The specimen is submitted entirely in cassette B1. (TSD; 03/09/2019) TOB/TOB 03/09/2019 2316 Local . 02 Pathologist provided ICD-10: K29.50, K52.9, K31.9, K62.89 . 02 CPT . 252475, 301092, T45140 Specimen Comment: A courtesy copy of this report has been sent to Specimen Comment: [phone], , . Specimen Comment: Report sent to ,DR SHARMA / DR VALDEZ Performed at: [address], [place], [place] [id number] MD Gregg Hyman MD Phone: [phone] Performed at: [address] [id number] MD Bertha Lang MD Phone: [phone]
[2019-03-10 17:05] LABS: PROTIME 9.9 Seconds (9.3-11.4)
--- NOTE | 2019-03-10 17:23 | NUR ---
ASSUMMED PT CARE AT APPROXIMATELY 0700. PT A&O X4. ASSESSMENT CHARTED. VITAL SIGNS STABLE. BLOOD SUGARS STABLE. PT DENIED HAVING CHEST PAIN. PT DENIED HAVING SOB. PT DOES HAVE PAIN IN HER GENERALIZED ABD AREA. PT RECEIEVED ANALGESICS FOR PAIN. PT STATED PAIN DID DECREASE AFTER GIVING ANALGESICS. PT AMBULATES STEADY/INDEPENDENTLY. ASSIST FOR IV POLE. PT'S JAGUAR DRAIN C/D/I. EDUCATED PT WITH POC UPDATES. PT STATED UNDERSTANDING AND DENIED HAVING FURTHER QUESTIONS. PT HAVING FREQUENT DIARRHEA. DR'S NOTIFIED. PT RESUMED CONTACT PRECAUTIONS FOR POSSIBLE C.DIF. PT LAYING COMFORTABLE IN BED, DENIES HAVING FURTHER CONCERNS.
[2019-03-10 19:51] VITALS: BP 127/56
--- NOTE | 2019-03-11 04:57 | NUR ---
ASSUMED PT CARE AT 1900 WITH NO SIGN OF DISTRESS NOTED. PT IS ALERT AND ORIENTED. PT COMPLAINS OF PAIN. PAIN MED ADMINISTERED TO PT. ASSESSEMENT COMPLTED AND DOCUMENTED. VITAL SIGNS STABLE. SCHEDULED MEDS ADMINISTERED TO PT. NO FURTHER NEEDS AT THIS TIME.
[2019-03-11 05:26] LABS: HEMATOCRIT 35.8 % (37.0-47.0); HEMOGLOBIN 11.6 gm/dL (12.0-15.0); MCH 27.9 pg (26.0-34.0); MCHC 32.5 g/dL (28.0-37.0); MCV 86.1 fL (80.0-100.0); PLATELET COUNT 289 thou/uL (150-400); RBC 4.15 mil/uL (4.20-5.00); RDW 14.2 % (10.5-14.5); WBC 12.8 thou/uL (4.0-11.0)
[2019-03-11 05:32] VITALS: BP 139/72
[2019-03-11 05:58] LABS: CALCIUM 7.9 mg/dL (8.5-10.1); CREATININE 0.8 mg/dL (0.6-1.0); MAGNESIUM 1.5 mg/dL (1.8-2.4); PHOSPHORUS 2.2 mg/dL (2.5-4.9); POTASSIUM 3.4 mmol/L (3.5-5.1)
[2019-03-11 07:07] VITALS: BP 143/63
[2019-03-11 08:37] LABS: ABSOLUTE NEUTROPHILS 8.6 thou/uL (1.4-8.2); ANISOCYTOSIS 1+; METAMYELOCYTES 3 %; MYELOCYTES 1 %
[2019-03-11 13:14] VITALS: BP 114/58
[2019-03-11 16:15] VITALS: BP 151/65
--- NOTE | 2019-03-11 16:25 | NUR ---
Possible weekend dc. Pt up ad [place] and able to do drain care. No hh referral indicated at this time. Will remain available should needs arise.
--- NOTE | 2019-03-11 17:38 | NUR ---
ASSUMED CARE OF PT AT SHIFT CHANGE. ASSESSMENTS CHARTED. MEDS GIVEN PER MAR. VSS. A&OX4. UP AD PRAKASH. ABDOMINAL PAIN MANAGED WITH IV MEDS. WILL CONTINUE TO MONITOR AND FOLLOW POC.
[2019-03-11 20:20] VITALS: BP 114/49
[2019-03-12 04:00] VITALS: BP 128/54
--- NOTE | 2019-03-12 05:17 | NUR ---
RECEIVED CARE AT 1920; PT. AOX4; ON BED; ST. DECREASE PAIN; PRN PAIN MEDICATION NOT DUE; HS MEDICATION GIVEN TOGETHER WITH PRN PAIN MEDICATION; DURING PAIN RE-ASSESSMENT PT. ST. DECREASE PAIN; ST. DOES NOT LIKE HAVE DRAINAGE OVER DRAIN BAG; EDUCATED ABOUT MEASURING CONTENT; ST. UNDERSTANDING; ABLE TO REST THROUGH THE NIGHT; MONITORING; ASSESSMENT CHARGED; FOLLOWING POC; WILL PASS ON REPORT.
[2019-03-12 07:37] VITALS: BP 131/63
[2019-03-12 08:29] LABS: ALBUMIN 2.3 g/dL (3.4-5.0); CALCIUM 8.5 mg/dL (8.5-10.1); CREATININE 0.9 mg/dL (0.6-1.0); MAGNESIUM 1.6 mg/dL (1.8-2.4); PHOSPHORUS 2.4 mg/dL (2.5-4.9); POTASSIUM 4.4 mmol/L (3.5-5.1); TOTAL BILIRUBIN 0.2 mg/dL (<0.1-1.0); TOTAL PROTEIN 6.2 g/dL (6.4-8.2)
[2019-03-12 08:31] LABS: INR 1.8; PROTIME 19.2 Seconds (9.3-11.4)
[2019-03-12 11:49] VITALS: BP 100/50
--- NOTE | 2019-03-12 15:11 | NUR ---
ASSUMED CARE OF PATIENT AT 0700. ASSESSMENTS COMPLETED. PATIENT IS IN ISOLATION FOR POSSIBLE CDIFF. BLOOD SUGARS CHECKED AC&HS. PATIENT'S BLOOD SUGARS RUNNING HIGHER TODAY THAN NORMAL WHICH CONCERNS THE PATIENT. CARB CONTROL ADDED SECONDARY TO PATIENT'S SOFT/FIBER RESTRICTED AND ENDO MODIFIED MEDS. PATIENT CONTINUING TO COMPLAIN OF RIGHT SIDED ABDOMINAL PAIN, WHICH IS HELPED WITH MORPHINE. PATIENT IS SLOWING DOWN HER EATING AND SPACING HER FOOD OUT, WHICH SHE ALSO ATTRIBUTES TO HER DECREASED SEVERITY IN ABDOMINAL PAIN. PATIENT CONTINUES ON IV ABX.
[2019-03-12 16:10] VITALS: BP 111/52
[2019-03-12 21:05] VITALS: BP 131/66
[2019-03-13 01:26] LABS: URINE BILIRUBIN NEGATIVE (Negative); URINE BLOOD TRACE (Negative); URINE CLARITY CLEAR; URINE COLOR YELLOW; URINE GLUCOSE-RANDOM* NEGATIVE (Negative); URINE KETONES NEGATIVE (Negative); URINE LEUKOCYTES-REFLEX TRACE (Negative); URINE NITRITE-REFLEX NEGATIVE (Negative); URINE PROTEIN (DIPSTICK) TRACE (Negative); URINE SPECIFIC GRAVITY 1.025 (1.005-1.035); URINE UROBILINOGEN 0.2 E.U./dl (0.2-1.0)
[2019-03-13 04:45] VITALS: BP 123/65
--- NOTE | 2019-03-13 05:03 | NUR ---
RECEIVED PT'S CARE AROUND 1915; PT. ON BED; AOX4; DURING ASSESSMENT ST. ABD TENDERNESS; HS MEDICATION GIVEN; EDUCATED ABOUT CALLING FOR POSSIBLE S/S OF LOW BLOOD SUGAR; ST. UNDERSTANDING; REQUESTED PRN PAIN MEDICATION AROUND 0100; MEDICATION GIVEN; RE-ASSESSMENT SLEEPING; ASSESSMENT CHARGED; FOLLOWING POC; MONITORING; WILL PASS ON REPORT.
[2019-03-13 07:50] VITALS: BP 105/64
[2019-03-13 08:03] LABS: ABSOLUTE NEUTROPHILS 11.1 thou/uL (1.4-8.2); EOSINOPHILS 2.1 % (0.0-3.0); HEMATOCRIT 38.6 % (37.0-47.0); HEMOGLOBIN 12.5 gm/dL (12.0-15.0); LYMPHOCYTES 19.2 % (24.0-44.0); MCH 27.8 pg (26.0-34.0); MCHC 32.4 g/dL (28.0-37.0); MCV 85.6 fL (80.0-100.0); MONOCYTES 5.8 % (1.0-8.0); PLATELET COUNT 349 thou/uL (150-400); POLYS 71.9 % (36.0-66.0); RBC 4.51 mil/uL (4.20-5.00); RDW 14.7 % (10.5-14.5); WBC 15.4 thou/uL (4.0-11.0)
[2019-03-13 08:12] LABS: INR 1.6; PROTIME 16.2 Seconds (9.3-11.4)
[2019-03-13 08:14] LABS: CALCIUM 8.6 mg/dL (8.5-10.1); CREATININE 0.8 mg/dL (0.6-1.0); MAGNESIUM 1.4 mg/dL (1.8-2.4); PHOSPHORUS 3.1 mg/dL (2.5-4.9); POTASSIUM 3.7 mmol/L (3.5-5.1)
[2019-03-13 11:09] VITALS: BP 119/54
[2019-03-13] MEDS ORDERED: FLAGYL 250 MG250 MG PO (13:24)
[2019-03-13] MEDS ORDERED: COUMADIN 5 MG TA5 M1 PO (13:25)
[2019-03-13] MEDS ORDERED: CARAFATE 11 GM/10 M1 PO (13:26)
[2019-03-13] MEDS ORDERED: GLUCOPHAGE500 MG PO (13:27)
[2019-03-13] MEDS ORDERED: PROTONIX40 M1 PO (13:28)
[2019-03-13 14:34] VITALS: BP 119/54
--- NOTE | 2019-03-13 15:52 | NUR ---
ASSESSMENT CHARTED. PT ALERT AND ORIENTED. VSS. RECEIVED PRN PAIN MED WITH PARTIAL RELIEF. ORDERS GIVEN TO DISCHARGE PT TO HOME. DISCHARGE INSTRUCTIONS GIVEN TO PT. PT VERBERLISED UNDERSTANDING.
== END 2019-03-13 16:07 | disposition home or self-care (01) | DRG 871 ==
LOC: ER 11:10 → 2N 13:45 → EROBS 13:45 → 2N 15:48
PROVIDERS: Internal Medicine; Physician Assistant; Radiology Diagnostic Radiology; Surgery; ADMIT Hospitalist
PROC: 0F9430Z Drainage of Gallbladder with Drainage Device, Percutaneous Approach (ICD-10-PCS; principal; 2019-03-09)
PROC: 0DBM8ZX Excision of Descending Colon, Via Natural or Artificial Opening Endoscopic, Diagnostic (ICD-10-PCS; principal; 2019-03-09)
PROC: 0DB68ZX Excision of Stomach, Via Natural or Artificial Opening Endoscopic, Diagnostic (ICD-10-PCS; principal; 2019-03-09)
DX: A41.9 Sepsis, unspecified organism (principal); K25.4 Chronic or unspecified gastric ulcer with hemorrhage; N17.9 Acute kidney failure, unspecified; K51.90 Ulcerative colitis, unspecified, without complications; K62.5 Hemorrhage of anus and rectum; E46 Unspecified protein-calorie malnutrition; N39.0 Urinary tract infection, site not specified; K80.00 Calculus of gallbladder with acute cholecystitis without obstruction; I42.9 Cardiomyopathy, unspecified; I10 Essential (primary) hypertension; E89.0 Postprocedural hypothyroidism; I25.10 Atherosclerotic heart disease of native coronary artery without angina pectoris; E78.5 Hyperlipidemia, unspecified; J45.909 Unspecified asthma, uncomplicated; E11.51 Type 2 diabetes mellitus with diabetic peripheral angiopathy without gangrene; K62.89 Other specified diseases of anus and rectum; E11.42 Type 2 diabetes mellitus with diabetic polyneuropathy; E11.65 Type 2 diabetes mellitus with hyperglycemia; F17.210 Nicotine dependence, cigarettes, uncomplicated; K20.9 Esophagitis, unspecified; D64.9 Anemia, unspecified; B96.1 Klebsiella pneumoniae [K. pneumoniae] as the cause of diseases classified elsewhere; E83.42 Hypomagnesemia; E83.39 Other disorders of phosphorus metabolism; Z86.718 Personal history of other venous thrombosis and embolism; I25.2 Old myocardial infarction; Z89.421 Acquired absence of other right toe(s); Z95.820 Peripheral vascular angioplasty status with implants and grafts; Z88.7 Allergy status to serum and vaccine; Z83.3 Family history of diabetes mellitus; Z80.1 Family history of malignant neoplasm of trachea, bronchus and lung; Z68.35 Body mass index [BMI] 35.0-35.9, adult; Z79.01 Long term (current) use of anticoagulants
CPT/HCPCS: 10081; 62110; 62900; 70005

== ENCOUNTER 2019-04-21 05:42 | Day surgery (SDC) | payer OTHER ==
[~2019-04-21] VITALS: Ht 160 cm; Wt 86.2 kg
[~2019-04-21 05:42] MED LIST changes: +ARTIFICIAL TEA1 EAC1 OPHTHALMIC; +ASPIR 8181 M1 PO; +CARAFATE 11 GM/10 M1 PO; +COSOPT OCUMETER10 M1 OP; +COUMADIN 2.5MG2.5 M1 PO; +ELIQUIS5 MG PO; +FLAGYL 250 MG250 MG PO; +GLUCOPHAGE500 MG PO; +LYRICA100 MG PO; +MAGNESIUM400 M1 PO; +METFORMIN HCL500 M3 PO; +NORCO 5-325 TA1 EAC1 PO; +PLAVIX 75 MG TA75 MG PO; +PROTONIX40 M1 PO; +TRAVATAN Z2.5 ML OPHTHALMIC
[2019-04-21 07:09] LABS: PROTIME 10.7 Seconds (9.3-11.4)
[2019-04-21 08:23] VITALS: BP 100/56
[2019-04-21] MEDS ORDERED: ACETAMINOPHEN325 M1 PO (09:27)
[2019-04-21] MEDS ORDERED: OXYCODONE HCL 55 MG PO (09:27)
[2019-04-21] MEDS ORDERED: MIRALAX17 GM PO (09:28)
[2019-04-21] MEDS ORDERED: COLACE 100 MG100 MG PO (09:28)
[2019-04-21 10:23] VITALS: BP 100/56
--- NOTE | 2019-04-21 10:36 | NUR ---
CALL FROM DR. FARRIS TO ASSIST WITH OUTPT GI FOLLOW UP AT [facility]. PT IS PACU POST IRIS JASSO. CALLED [facility] AND INSTRUCTED TO FAX REFERRAL TO [phone] (P:[phone]) AND WILL BE REVIEWED AND RN WILL CALL PT TO SCHEDULE APPT. CONFIRMED PT'S CELL CONTACT PRIOR TO FAXING REFERRAL. RERQUESTED GI CLINIC NOTIFY CM OF PT'S APPT WHEN MADE AND CONTACT # PROVIDED. SPOKE WITH PT ABOUT PLAN BUT SHE IS SLEEPY. ALSO UPDATED DECONTAMINATION WORKER WHO WILL REVIEW INFO WITH PT WELL. DR. FARRIS UPDATED.
--- NOTE | 2019-04-25 16:06 | PATH ---
[facility] [address] [place] [address] PATHOLOGY RPT PROCEDURE Name: JANIE RUIZ Room #: DEP [facility] M.R.#: [id number] Admission: 04/21/19 Date of : 62 Discharge: 04/21/19 Report #: [id number] Path Case #: [id number] LCA Accession Number: [id number] . 01 Material submitted: . gallbladder - GALLBLADDER AND CONTENTS . 01 Clinical history: . Chronic cholecystitis . 02 Diagnosis: Gallbladder and contents, cholecystectomy: - Moderate acute hemorrhagic cholecystitis with focal ulceration. (IUV:manager relocation; 04/25/2019) MBR 04/25/2019 1224 Local . 02 Electronically signed: . Bertha Lang MD, Pathologist NPI- [id number] . 01 Gross description: . Received in formalin labeled "Janie Ruiz, gallbladder and contents," is an intact gallbladder measuring 7.8 x 3.6 x 1.1 cm in greatest dimensions. The serosal surface is wrinkled to shaggy and light tsang-torres to dusky rutledge-torres in appearance. Multiple defects are noted in the hepatic surface, ranging from 0.1 to 0.2 cm in maximum dimension and extending to within 5.0 cm of the infundibulum. Opening the specimen reveals a granular, dark torres-brown mucosa measuring 0.1 cm in thickness, with a gallbladder wall thickness of up to 0.3 cm. No polyps or nodules are identified grossly. A single fragment of black, friable material is noted within the gallbladder lumen that measures 0.5 x 0.4 x 0.1 cm; discrete calculi are not present within the specimen or specimen container. Director Of Software Engineering sections of the infundibulum, body and fundus are submitted in cassette A1, to representatively include the hepatic surface defects. (DAC; 04/22/2019) XDC/XDC 04/25/2019 1223 Local . 02 Pathologist provided ICD-10: K81.0 . 02 CPT . 067545 Specimen Comment: A courtesy copy of this report has been sent to [phone] Specimen Comment: [phone] Specimen Comment: Report sent to / DR SHARMA [address] [address] PATHOLOGY RPT PROCEDURE Name: [facility] Room #: DEP [facility] M.R.#: [id number] Admission: 04/21/19 Date of : 62 Discharge: 04/21/19 Report #: [id number] Path Case #: [id number] Performed at: 01 [facility] Chidi Chapman [address], [place], [place] [id number] MD Gregg Hyman MD Phone: [phone] Performed at: [address] [id number] MD Bertha Lang MD Phone: [phone]
== END 2019-04-21 10:45 | disposition home or self-care (01) ==
LOC: OR 05:42 → TBA 06:10 → OR 09:21
PROVIDERS: Surgery
DX: K81.0 Acute cholecystitis (principal); E11.9 Type 2 diabetes mellitus without complications; I73.9 Peripheral vascular disease, unspecified; I25.2 Old myocardial infarction; E78.5 Hyperlipidemia, unspecified; K21.9 Gastro-esophageal reflux disease without esophagitis; F32.9 Major depressive disorder, single episode, unspecified; F41.9 Anxiety disorder, unspecified; F17.210 Nicotine dependence, cigarettes, uncomplicated; Z86.718 Personal history of other venous thrombosis and embolism; Z79.01 Long term (current) use of anticoagulants; Z98.890 Other specified postprocedural states; Z79.4 Long term (current) use of insulin; Z98.41 Cataract extraction status, right eye; Z98.42 Cataract extraction status, left eye; Z88.7 Allergy status to serum and vaccine; Z79.899 Other long term (current) drug therapy
CPT/HCPCS: 50010; 50101; 50249; 50411; 50558; 51489; 52265; 52266; 53307; 53310; 54022; 54118; 55245; 56462; 56525; 56526; 56674; 62110; 62900; 70005

== ENCOUNTER 2019-04-28 14:06 | Emergency (ER) | payer OTHER ==
[~2019-04-28] VITALS: Ht 160 cm; Wt 84.4 kg
[~2019-04-28 14:06] MED LIST changes: +ACETAMINOPHEN325 M1 PO; +COLACE 100 MG100 MG PO; +MIRALAX17 GM PO; +OXYCODONE HCL 55 MG PO
[2019-04-28 15:07] LABS: ABSOLUTE NEUTROPHILS 6.9 thou/uL (1.4-8.2); BASOPHILS 1.2 % (0.0-2.0); EOSINOPHILS 3.6 % (0.0-3.0); HEMATOCRIT 37.2 % (37.0-47.0); LYMPHOCYTES 33.2 % (24.0-44.0); MCH 27.7 pg (26.0-34.0); MCHC 32.3 g/dL (28.0-37.0); MCV 85.9 fL (80.0-100.0); MONOCYTES 6.4 % (1.0-8.0); PLATELET COUNT 421 thou/uL (150-400); POLYS 55.6 % (36.0-66.0); RBC 4.33 mil/uL (4.20-5.00); RDW 14.4 % (10.5-14.5); WBC 12.4 thou/uL (4.0-11.0)
[2019-04-28 15:19] LABS: CALCIUM 8.9 mg/dL (8.5-10.1); CREATININE 1.2 mg/dL (0.6-1.0)
[2019-04-28 15:25] LABS: ALBUMIN 2.9 g/dL (3.4-5.0); TOTAL BILIRUBIN 0.2 mg/dL (<0.1-1.0)
[2019-04-28 17:56] VITALS: BP 112/50
--- NOTE | 2019-04-29 12:26 | EKG ---
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: ELVA : 1960 Requested By: Carlos Dooley Order Number: [id number] MD: López Chapman Measurements Intervals [place] Rate: 82 P: 41 AR: 138 QRS: -49 QRSD: 105 T: 59 QT: 395 QTc: 462 Interpretive Statements Sinus rhythm Inferior infarct, old Anterior infarct, old Compared to ECG 03/06/2019 12:35:56 No significant changes Electronically Signed On 04-29-2019 12:26:16 OCCUPATIONAL HEALTH COORDINATOR by López Chapman [email or web address] <ELECTRONICALLY SIGNED> By: López Chapman MD 04/29/19 1226 1412 1412 López Chapman MD /WALKER
== END 2019-04-28 17:59 | disposition home or self-care (01) ==
LOC: ER 14:06
PROVIDERS: Emergency Medicine
DX: I95.9 Hypotension, unspecified (principal); E86.9 Volume depletion, unspecified; I10 Essential (primary) hypertension; E11.9 Type 2 diabetes mellitus without complications; E78.5 Hyperlipidemia, unspecified; I25.10 Atherosclerotic heart disease of native coronary artery without angina pectoris; K21.9 Gastro-esophageal reflux disease without esophagitis; F41.9 Anxiety disorder, unspecified; F32.9 Major depressive disorder, single episode, unspecified; F17.210 Nicotine dependence, cigarettes, uncomplicated; Z88.7 Allergy status to serum and vaccine; Z86.718 Personal history of other venous thrombosis and embolism; Z90.49 Acquired absence of other specified parts of digestive tract; Z79.4 Long term (current) use of insulin

== ENCOUNTER 2019-07-25 00:35 | Emergency (ER) | payer OTHER ==
[~2019-07-25] VITALS: Ht 160 cm; Wt 88.5 kg
[2019-07-25 01:54] LABS: URINE BILIRUBIN NEGATIVE (Negative); URINE BLOOD 1+ (Negative); URINE CLARITY CLEAR; URINE COLOR YELLOW; URINE GLUCOSE-RANDOM* 3+ (Negative); URINE KETONES NEGATIVE (Negative); URINE LEUKOCYTES-REFLEX NEGATIVE (Negative); URINE NITRITE-REFLEX NEGATIVE (Negative); URINE PROTEIN (DIPSTICK) 2+ (Negative); URINE SPECIFIC GRAVITY 1.025 (1.005-1.035); URINE UROBILINOGEN 0.2 E.U./dl (0.2-1.0)
[2019-07-25 02:05] LABS: ABSOLUTE NEUTROPHILS 5.9 thou/uL (1.4-8.2); BASOPHILS 0.7 % (0.0-2.0); EOSINOPHILS 2.2 % (0.0-3.0); HEMOGLOBIN 12.2 gm/dL (12.0-15.0); LYMPHOCYTES 34.3 % (24.0-44.0); MCH 26.9 pg (26.0-34.0); MCHC 32.2 g/dL (28.0-37.0); MCV 83.5 fL (80.0-100.0); MONOCYTES 7.7 % (1.0-8.0); PLATELET COUNT 339 thou/uL (150-400); POLYS 55.1 % (36.0-66.0); RBC 4.55 mil/uL (4.20-5.00); RDW 14.8 % (10.5-14.5); WBC 10.8 thou/uL (4.0-11.0)
[2019-07-25 02:12] LABS: AMP/METHAMP Negative (Negative); BARBITURATES Negative (Negative); BENZODIAZEPINES Negative (Negative); COCAINE Negative (Negative); METHADONE Negative (Negative); OPIATES Negative (Negative); PCP Negative (Negative)
[2019-07-25 02:17] LABS: ANION GAP 11 mmol/L (7-16); BUN 26 mg/dL (7-18); CHLORIDE 100 mmol/L (98-107); CO2 24 mmol/L (21-32); GLUCOSE 278 mg/dL (74-106); SODIUM 135 mmol/L (136-145)
[2019-07-25 02:21] LABS: APTT 27.6 Seconds (24.5-32.8)
[2019-07-25 02:23] LABS: TROPONIN-I <0.06 ng/mL (<0.06)
[2019-07-25 02:24] LABS: ALBUMIN 3.3 g/dL (3.4-5.0); SALICYLATE 3.2 mg/dL (2.8-20.0); SGOT 26 U/L (15-37); SGPT 44 U/L (30-65); TOTAL BILIRUBIN 0.1 mg/dL (<0.1-1.0); TOTAL PROTEIN 7.2 g/dL (6.4-8.2)
[2019-07-25 02:24] LABS: BACTERIA-REFLEX None Seen /HPF (None Seen); CASTS None Seen /LPF (None Seen); CRYSTALS None Seen /LPF (None Seen); MUCUS None Seen strn/LPF (None Seen); SQUAMOUS None Seen /LPF (0-3); URINE RBC None Seen /HPF (0-2)
[2019-07-25 02:25] LABS: URINE WBC-REFLEX 0-5 Rare /HPF (0-5)
[2019-07-25] MEDS ORDERED: TRAMADOL 50 MG50 MG PO (03:14)
[2019-07-25 03:58] VITALS: BP 116/63
== END 2019-07-25 03:30 | disposition home or self-care (01) ==
LOC: ER 00:35
PROVIDERS: Emergency Medicine
DX: R07.89 Other chest pain (principal); I73.9 Peripheral vascular disease, unspecified; E11.9 Type 2 diabetes mellitus without complications; I10 Essential (primary) hypertension; E78.5 Hyperlipidemia, unspecified; F41.9 Anxiety disorder, unspecified; F32.9 Major depressive disorder, single episode, unspecified; F17.210 Nicotine dependence, cigarettes, uncomplicated; Z86.718 Personal history of other venous thrombosis and embolism; Z79.899 Other long term (current) drug therapy; Z88.7 Allergy status to serum and vaccine; V49.3XXA Car occupant (driver) (passenger) injured in unspecified nontraffic accident, initial encounter; Y93.89 Activity, other specified; Y92.89 Other specified places as the place of occurrence of the external cause; Y99.8 Other external cause status

== ENCOUNTER → 2019-08-25 | Outpatient (CLI) | payer OTHER ==
[~2019-08-25] MED LIST changes: +TRAMADOL 50 MG50 MG PO
== END ==
LOC: SJCVCIMAG 08-02 12:01
DX: I70.203 Unspecified atherosclerosis of native arteries of extremities, bilateral legs (principal); I25.10 Atherosclerotic heart disease of native coronary artery without angina pectoris; I10 Essential (primary) hypertension; J44.9 Chronic obstructive pulmonary disease, unspecified; F17.200 Nicotine dependence, unspecified, uncomplicated; E11.00 Type 2 diabetes mellitus with hyperosmolarity without nonketotic hyperglycemic-hyperosmolar coma (NKHHC); I25.2 Old myocardial infarction; E78.00 Pure hypercholesterolemia, unspecified; Z90.49 Acquired absence of other specified parts of digestive tract; Z98.61 Coronary angioplasty status; Z95.1 Presence of aortocoronary bypass graft; Z79.899 Other long term (current) drug therapy

== ENCOUNTER → 2020-03-15 | Outpatient (CLI) | payer OTHER | LOC: SJCVCIMAG 08:25 | PROVIDERS: ATTEND Internal Medicine Cardiovascular Disease | DX: I65.23 Occlusion and stenosis of bilateral carotid arteries (principal); I70.203 Unspecified atherosclerosis of native arteries of extremities, bilateral legs; I25.10 Atherosclerotic heart disease of native coronary artery without angina pectoris; I10 Essential (primary) hypertension; J44.9 Chronic obstructive pulmonary disease, unspecified; E78.00 Pure hypercholesterolemia, unspecified; E11.59 Type 2 diabetes mellitus with other circulatory complications; F17.210 Nicotine dependence, cigarettes, uncomplicated; Z98.890 Other specified postprocedural states; Z79.4 Long term (current) use of insulin; Z79.899 Other long term (current) drug therapy ==

== ENCOUNTER → 2020-05-03 | Outpatient (CLI) | payer OTHER | LOC: LAB 07:56 | PROVIDERS: ATTEND Family Medicine | DX: Z20.828 Contact with and (suspected) exposure to other viral communicable diseases (principal) ==

== ENCOUNTER 2020-06-29 15:25 | Emergency (ER) | payer OTHER ==
[~2020-06-29] VITALS: Ht 160 cm; Wt 90.7 kg
[2020-06-29 15:26] VITALS: BP 134/57
== END 2020-06-29 18:42 | disposition home or self-care (01) ==
LOC: ER 15:25
DX: G89.29 Other chronic pain (principal); M54.5 Low back pain; I10 Essential (primary) hypertension; E11.9 Type 2 diabetes mellitus without complications; E78.5 Hyperlipidemia, unspecified; I25.10 Atherosclerotic heart disease of native coronary artery without angina pectoris; I25.2 Old myocardial infarction; K21.9 Gastro-esophageal reflux disease without esophagitis; F17.210 Nicotine dependence, cigarettes, uncomplicated; Z79.01 Long term (current) use of anticoagulants; Z79.82 Long term (current) use of aspirin; Z79.4 Long term (current) use of insulin; Z79.899 Other long term (current) drug therapy; Z88.7 Allergy status to serum and vaccine

== ENCOUNTER 2021-05-11 21:38 | Emergency (ER) | payer OTHER ==
[~2021-05-11] VITALS: Ht 160 cm; Wt 88.5 kg
[2021-05-11 23:53] LABS: ABSOLUTE NEUTROPHILS 10.2 thou/uL (1.4-8.2); BASOPHILS 0.5 % (0.0-2.0); EOSINOPHILS 0.8 % (0.0-3.0); HEMOGLOBIN 15.7 gm/dL (12.0-15.0); LYMPHOCYTES 21.5 % (24.0-44.0); MCH 28.1 pg (26.0-34.0); MCHC 33.4 g/dL (28.0-37.0); MCV 84.3 fL (80.0-100.0); MONOCYTES 6.9 % (1.0-8.0); PLATELET COUNT 399 thou/uL (150-400); POLYS 70.3 % (36.0-66.0); RBC 5.57 mil/uL (4.20-5.00); RDW 14.8 % (10.5-14.5); WBC 14.4 thou/uL (4.0-11.0)
[2021-05-11 23:57] LABS: CALCIUM 9.5 mg/dL (8.5-10.1); CREATININE 1.5 mg/dL (0.6-1.0); MAGNESIUM 1.2 mg/dL (1.8-2.4); POTASSIUM 4.9 mmol/L (3.5-5.1)
[2021-05-12 03:34] LABS: CALCIUM 8.4 mg/dL (8.5-10.1); CREATININE 1.2 mg/dL (0.6-1.0); POTASSIUM 4.3 mmol/L (3.5-5.1)
[2021-05-12 04:24] VITALS: BP 107/40
== END 2021-05-12 04:20 | disposition home or self-care (01) ==
LOC: ER 21:38
PROVIDERS: Student in an Organized Health Care Education/Training Program
DX: N17.9 Acute kidney failure, unspecified (principal); Z20.822 Contact with and (suspected) exposure to COVID-19; E86.0 Dehydration; K52.9 Noninfective gastroenteritis and colitis, unspecified; I10 Essential (primary) hypertension; E11.9 Type 2 diabetes mellitus without complications; E89.0 Postprocedural hypothyroidism; I25.10 Atherosclerotic heart disease of native coronary artery without angina pectoris; I25.2 Old myocardial infarction; I73.9 Peripheral vascular disease, unspecified; K21.9 Gastro-esophageal reflux disease without esophagitis; F32.9 Major depressive disorder, single episode, unspecified; F41.9 Anxiety disorder, unspecified; F17.210 Nicotine dependence, cigarettes, uncomplicated; Z98.890 Other specified postprocedural states; Z90.49 Acquired absence of other specified parts of digestive tract; Z79.82 Long term (current) use of aspirin; Z79.4 Long term (current) use of insulin; Z79.891 Long term (current) use of opiate analgesic; Z79.899 Other long term (current) drug therapy; Z88.7 Allergy status to serum and vaccine

== ENCOUNTER → 2021-06-12 | Outpatient (CLI) | payer OTHER | LOC: SJCVCIMAG 15:03 | PROVIDERS: ATTEND Nuclear Medicine Nuclear Cardiology | DX: I70.202 Unspecified atherosclerosis of native arteries of extremities, left leg (principal); Z72.0 Tobacco use; M79.672 Pain in left foot ==

== ENCOUNTER 2021-06-25 15:38 | Emergency (ER) | payer OTHER ==
[~2021-06-25] VITALS: Ht 160 cm; Wt 92.1 kg
[2021-06-25 16:29] VITALS: BP 107/49
[2021-06-25 17:21] LABS: CALCIUM 9.1 mg/dL (8.5-10.1); CREATININE 1.1 mg/dL (0.6-1.0); POTASSIUM 4.3 mmol/L (3.5-5.1)
[2021-06-25 17:29] LABS: ALBUMIN 2.7 g/dL (3.4-5.0); TOTAL BILIRUBIN 0.2 mg/dL (0.2-1.0); TOTAL PROTEIN 7.5 g/dL (6.4-8.2)
== END 2021-06-25 19:27 | disposition left against medical advice (07) ==
LOC: ER 15:38
PROVIDERS: Emergency Medicine
DX: R22.42 Localized swelling, mass and lump, left lower limb (principal); Z53.21 Procedure and treatment not carried out due to patient leaving prior to being seen by health care provider

== ENCOUNTER 2021-06-26 08:29 | Inpatient (IN) | payer OTHER ==
[~2021-06-26] VITALS: Ht 160 cm; Wt 49.7 kg
[2021-06-26 08:49] VITALS: BP 128/54
[2021-06-26 09:46] LABS: ABSOLUTE NEUTROPHILS 11.3 thou/uL (1.4-8.2); BASOPHILS 0.8 % (0.0-2.0); EOSINOPHILS 1.3 % (0.0-3.0); HEMATOCRIT 37.1 % (37.0-47.0); HEMOGLOBIN 12.1 gm/dL (12.0-15.0); LYMPHOCYTES 20.3 % (24.0-44.0); MCH 27.5 pg (26.0-34.0); MCHC 32.7 g/dL (28.0-37.0); MCV 84.2 fL (80.0-100.0); MONOCYTES 7.1 % (1.0-8.0); PLATELET COUNT 494 thou/uL (150-400); POLYS 70.5 % (36.0-66.0); RDW 14.5 % (10.5-14.5)
[2021-06-26 10:01] LABS: CALCIUM 9.2 mg/dL (8.5-10.1); CREATININE 1.1 mg/dL (0.6-1.0)
--- NOTE | 2021-06-26 16:38 | NUR ---
61 year old female presents to the ED via private vehicle on 06-26-21 worsening discoloration and pain of her left third toe. Notably had an ultrasound by Dr. Curiel on 06-14-21 which patient reports as normal. Patient has a history of multiple toe amputations. Noted that patient admitted for suspected osteomyelitis and elevated WBC of 16 as well as elevations in ESR and CRP. IV abts's have been initiated. Of note per ED Triage assessment patient noted as vaccinated and per ED ID NOW listed as negative. Wound care MD has been consulted as well as therapy order placed. Per the assessments the patient is currently listed as A&O x4. Patient last seen upon discharge on 03-13-2019 and noted her Mother Demetrice Munoz at [phone] as next of kin. Attempted to reach Demetrice x2 without success. CM will follow for discharge needs once therapy evaluations are completed in conjunction with MD assessment (s).
[2021-06-26 20:00] VITALS: BP 126/52
[2021-06-27 10:05] VITALS: BP 129/41
[2021-06-27 20:00] VITALS: BP 122/43
[2021-06-28 04:14] VITALS: BP 101/35
[2021-06-28 12:47] VITALS: BP 101/35
--- NOTE | 2021-06-28 14:14 | NUR ---
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 Pt is from home and lives with her mother. She has been indep in the past and has had previous toe amputation. She is being seen by IR, podiatry and wound care. PT/OT evals are pending her procedure. She is on iv atb as well. No weekend dc anticipated. Will follow.
--- NOTE | 2021-06-28 14:15 | HC ---
[facility] [place] [address] CONSULTATION Name: OZARKEULOGIO Room #: [facility] ADM IN M.R.#: [id number] Admission: 06/26/21 Attend Phys: Arnold Ross MD Discharge: Date of : 62 Report #: [id number] THIS REPORT FOR: cc: Sepideh Nelson MD, Nora P. MD Stephens, Thad A. MD ~ DATE OF SERVICE: 06/27/2021 WOUND CARE CONSULTATION PERSONAL PHYSICIAN: Sepideh Nelson MD CHIEF COMPLAINT: Dry gangrene on the left third toe with concern for osteomyelitis. HISTORY OF PRESENT ILLNESS: This is a 61-year-old white female who states approximately 2 weeks ago, she started noticing a blackish discoloration to the tip of the left third toe. The patient denies any trauma. The patient contacted Dr. Curiel's office, went it, they did a venous Doppler because of swelling and were concerned of possible DVT, which supposedly was negative. However, they recommended that she go to the Emergency Department for possible admission for dry gangrene of her toe. The patient states she went, waited several hours and was still not even got admitted to the Emergency Department, she left and then came again back last evening to the Emergency Department, was noted to have progressive dry gangrene of the left third toe as well as early cellulitis. The patient then was admitted to the hospital for further evaluation. The patient did have an arterial Doppler performed in the Emergency Department, which shows concern for restenosis in her left leg. The patient does complain of pain in the toe itself. The patient denies any other associated wounds at this time. PAST MEDICAL HISTORY: Includes hypertension, diabetes mellitus, herniated disk in her back, peripheral vascular disease with previous left-sided stent placement as well as right-sided stent placement. The patient had a previous left femoral popliteal bypass in 2018, amputation of her left great toe, amputation of her right fifth toe, coronary artery disease with stents, cholecystectomy. CURRENT MEDICATIONS: Multiple, reviewed the patient's medication list. DRUG ALLERGIES: TETANUS. SOCIAL HISTORY: The patient still smokes 1 pack of cigarettes daily. Denies alcohol use. FAMILY HISTORY: Not pertinent to current medical condition. [address] [address] CONSULTATION Name: [facility] Room #: [facility] ADM IN .R.#: [id number] Admission: 06/26/21 Attend Phys: Arnold Ross MD Discharge: Date of : 62 Report #: [id number] REVIEW OF SYSTEMS: CONSTITUTIONAL: The patient denies fevers or chills. NEUROLOGIC: The patient complains of numbness sensation in her bilateral feet, but denies any isolated weakness in arms or legs. EYES: No complaints. EARS, NOSE AND THROAT: No complaints. CARDIAC: The patient denies chest pain, palpitations. Does have chronic lower extremity edema, left greater than right. RESPIRATORY: The patient denies shortness of breath, cough, wheezes. GASTROINTESTINAL: The patient denies nausea, vomiting, abdominal pain. GENITOURINARY: The patient denies urgency or frequency. MUSCULOSKELETAL: Chronic back pain. SKIN: The patient has dry gangrene to the left third toe. PHYSICAL EXAMINATION: VITAL SIGNS: Temperature 36.4, pulse 80, respiratory rate 18, BP 126/52. GENERAL: This is alert and oriented x 3, pleasant white female who is in mild distress secondary to pain. HEENT: Normocephalic, atraumatic. Mucous membranes are dry. Pupils are round. Sclerae white. NECK: Without JVD. LUNGS: Clear. HEART: Regular. ABDOMEN: Soft, nontender. EXTREMITIES: The patient moves all extremities without difficulty. Bilateral heels are intact. Evaluation of left lower extremity reveals increased mild erythema, warmth and tenderness to the left foot and ankle region. There is dry gangrene to the left third toe with intact dry eschar. There is swelling to the left third toe. Rest of the toes are intact except for the amputation of the left great toe. NEUROLOGIC: Cranial nerves II-XII grossly intact. Motor and sensory are grossly intact. LABORATORY DATA: White count 16.0, hemoglobin 12.1. Sed rate 69, BUN 20, creatinine 1.1, glucose is 212. C-reactive protein is 72.5, albumin is 2.7. Lower extremity arterial Doppler shows concern for arterial stenosis within the bypass graft of approximately 50%. X-ray of the left foot, third digit distal phalanx shows extensive osseous destruction consistent with osteomyelitis. IMPRESSION: 1. Dry gangrene, left third toe distal phalanx with osteomyelitis. 2. Severe peripheral arterial disease, status post multiple stenting and bypass. 3. Diabetes mellitus. [address] [address] CONS[facility]ATION [facility] [id number] Admission: 06/26/21 Attend Phys: Arnold Ross MD Discharge: Date of : 62 Report #: [id number] 4. History of tobacco use. 5. Generalized debility. 6. Moderate protein-calorie malnutrition, albumin 2.7. PLAN: At this time, we will start Betadine open to air in the left third toe. I will put a consult in for Dr. Curiel as well as consult to Dr. Lee. The patient understands most likely she is going to need amputation of that left third toe. We will make sure we maximize the patient's arterial status prior to any amputation. We will make sure we maximize the patient's oral supplementation for healing. We will utilize physical and occupational therapy for strengthening. We will continue all other current medications, which patient is already on IV antibiotics. <ELECTRONICALLY SIGNED> By: Miugelito Segura MD 06/28/21 1415 0902 1032 Miguelito Segura MD /nt
--- NOTE | 2021-06-28 18:03 | NUR ---
PT VSS. DENIES PAIN AND SOA. RIGHT GROIN SITE CDI WITHOUT HEMATOMA. DR SCHNEIDER AWARE OF PT'S STABLE CLINICAL CONDITION AND STABLE GROIN SITE AND HAS ALLOWED PT TO RETURN TO [facility] BED AT THIS TIME. EDUCATION DONE WITH RN AT BEDSIDE REGARDING GROIN MONITORING. RECEIVING RN DENIES QUESTIONS OR CONCERNS REGARDING PT'S POC. TRANSFERRING AT THIS TIME.
[2021-06-28 19:30] VITALS: BP 90/43
[2021-06-29] VITALS (7 sets, daily range): BP systolic 75–110; BP diastolic 40–74
--- NOTE | 2021-06-29 04:01 | NUR ---
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
--- NOTE | 2021-06-29 10:06 | NUR ---
ASSUMED PT CARE THIS AM. PT IS ALERT & ORIENTED X4. PT HAS IV SITE ON LFA RUNNING NS @126ML/HR. PT IS UP AD PRAKASH. PT IS ON ROOM AIR. PT IS ACCUCHECK ACHS. PT HAS BEEN NPO SINCE MIDNIGHT. WILL HAVE SURGERY TODAY. NO C/O OF NAUSEA AND VOMITING THIS AM. WILL CONTINUE TO MONITOR PT. FOLLOW POC.
--- NOTE | 2021-06-29 13:12 | H ---
[facility] [place] [address] HISTORY AND PHYSICAL Name: EULOGIO RUIZ Room #: 433I ADM IN M.Freddy.#: [id number] Admission: 06/26/21 Attend Phys: Arnold Ross MD Discharge: Date of : 62 Report #: [id number] THIS REPORT FOR: cc: Sepideh Nelson MD, Nora P. MD Rizzi, Raymond M. DPM ~ DATE OF SERVICE: 06/26/2021 INTRODUCTION: This is a 61-year-old white female, diabetic who has been admitted to [facility] for a left third digit diabetic foot ulcer with osteomyelitis. HISTORY OF PRESENT ILLNESS: This is a 61-year-old white female, diabetic who was admitted to [facility] with a diabetic foot ulcer of left third digit with osteomyelitis. The patient has a history of significant peripheral arterial disease and a previous fem-pop bypass on the left side. The patient says this wound started approximately a week ago, possibly longer. She is not complaining of any significant pain. PAST MEDICAL HISTORY: Noted for COPD, hypertension, coronary artery disease, hyperlipidemia and tobacco use. She also has a history of depression, anxiety, GERD. MEDICATIONS: Plavix, aspirin, Cymbalta, Crestor, lisinopril, insulin, Singulair, metformin, Lyrica, Protonix, Zosyn, vancomycin right now. ALLERGIES: TETANUS AND DIPHTHERIA TOXOID. FAMILY HISTORY: Noncontributory. SOCIAL HISTORY: The patient has history of tobacco use or alcohol use, no recreational drugs. PHYSICAL EXAMINATION: GENERAL: Well-developed, well-nourished white female in no acute distress. HEENT: PERRLA. NECK: Supple. No neck adenopathy. HEART: Regular rate and rhythm. LUNGS: No respiratory distress. LABORATORY DATA: White blood cell count is 16. DIAGNOSTIC DATA: X-rays show changes in the third digit distally concerning for osteomyelitis. [address] [address] HISTORY AND PHYSICAL Name: [facility] Room #: 433-I ADM IN .R.#: [id number] Admission: 06/26/21 Attend Phys: Arnold Ross MD Discharge: Date of : 62 Report #: [id number] She had a Doppler done, which showed some stenosis occurring in the proximal portion to the left femoropopliteal bypass. The patient has a necrotic third digit distal half, mostly at the plantar aspect. There is a slight odor. Vascular status as above. ASSESSMENT: Diabetic foot ulcer with osteomyelitis, third digit and peripheral artery disease. PLAN: I am going to wait for Dr. Reid's evaluation and move forward with a third digit amputation when he thinks is possible or he will tell me the limits of the amputation site possibly being a transmetatarsal amputation. I actually recommended to the patient since she has already lost her first toe and now the third toe for sure, it might be best to do a transmetatarsal amputation. I did give her my number to call me after she thinks about it and has further questions, let me know. I said it is up to her, no pressure, I want to make sure she felt no pressure and that she is to feel comfortable to call me and talking more about the different opportunities available. The patient understands. Also, she will have to get further examination of her arterial blood flow before moving forward. <ELECTRONICALLY SIGNED> By: Jordan Lee DPM 06/29/21 1312 1536 1734 Jordan Lee DPM /nt
--- NOTE | 2021-06-30 04:04 | NUR ---
PT C/O PAIN TO HER LOWER BACK AND TOE,MANAGED WITH MED.UP ADLIB IN THE ROOM.NO BM NOTED THIS SHIFT.PT CONT ON IV ABX ASORDERED.PT PROGRESSING SLOWLY TO DC GOALS.CALL LIGHT WITHIN REACH.
[2021-06-30 06:19] LABS: HEMATOCRIT 35.9 % (37.0-47.0); HEMOGLOBIN 11.4 gm/dL (12.0-15.0); MCHC 31.8 g/dL (28.0-37.0); RBC 4.22 mil/uL (4.20-5.00); RDW 14.3 % (10.5-14.5); WBC 13.2 thou/uL (4.0-11.0)
[2021-06-30 06:58] LABS: CALCIUM 8.6 mg/dL (8.5-10.1); CREATININE 1.2 mg/dL (0.6-1.0); MAGNESIUM 1.4 mg/dL (1.8-2.4)
[2021-06-30 07:09] VITALS: BP 115/56
--- NOTE | 2021-06-30 08:41 | NUR ---
ASSUMED PT CARE THIS AM. PT IS ALERT & ORIENTED X4. PT HAS IV SITE ON LFA SALINE LOCKED. PT IS ON ROOM AIR. PT IS ACCUCHECK ACHS AND GIVEN LISPRO AND GLARGINE THIS AM. PT C/O OF PAIN ON L TOE AND GIVEN PAIN MEDICATION PER PT REQUEST. WILL CONTINUE TO MONITOR PT. FOLLOW POC.
[2021-06-30 15:10] VITALS: BP 140/64
[2021-06-30 19:13] VITALS: BP 135/60
--- NOTE | 2021-07-01 06:39 | NUR ---
Pt gets up ad [place]. Drsg to left foot is c/d/i. [place] given for pain. Continues on ABts.
[2021-07-01 07:51] VITALS: BP 134/70
[2021-07-01 08:51] LABS: HEMATOCRIT 34.1 % (37.0-47.0); HEMOGLOBIN 11.2 gm/dL (12.0-15.0); MCH 27.9 pg (26.0-34.0); MCHC 32.9 g/dL (28.0-37.0); MCV 84.9 fL (80.0-100.0); RBC 4.01 mil/uL (4.20-5.00); RDW 14.5 % (10.5-14.5); WBC 13.4 thou/uL (4.0-11.0)
[2021-07-01 08:56] LABS: CALCIUM 8.7 mg/dL (8.5-10.1); CREATININE 1.3 mg/dL (0.6-1.0); MAGNESIUM 1.4 mg/dL (1.8-2.4); POTASSIUM 4.2 mmol/L (3.5-5.1)
--- NOTE | 2021-07-01 12:40 | NUR ---
Assumed patient care at shift change. Assessment as charted. Medications administered per EMAR; PRN pain med administered per request. Patient states she is ready to discharge. MD aware; PT/OT ordered. Patient voices no new needs. Ambulating well w/ partial weight-bearing/ pivoting. Tolerating PO intake well; voiding well.
--- NOTE | 2021-07-01 13:46 | NUR ---
ORDERS RECEIVED FOR EVAL AND TREAT. OBSERVED Pt GET OUT OF BED AND WALK IN ROOM MOSTLY HEEL BEARING ON LT LE. Pt STATES SHE HAS BEEN GETTING UP WITHOUT DIFFICULTY. STATES SHE HAS A POST-OP SHOE AT HOME SHE WILL WEAR. Pt DECLINING A FORMAL P.T. EVAL STATING SHE FEELS SAFE FOR HOME AND HAS ALREADY BEEN UP. Pt APPEARS SAFE FOR HOME TODAY. DISCUSSED WITH NURSING
[2021-07-01 15:42] VITALS: BP 109/49
[2021-07-01 19:28] VITALS: BP 104/62
--- NOTE | 2021-07-02 02:35 | NUR ---
LEFT FOOT WITH DRSG C/D/I. TOES WITH GOOD CSM. ELEVATING WHILE IN BED.PT IS UP AD PRAKASH IN ROOM. GETTING NORCO Q4 FOR PAIN. CONTINUES ON IV ABTS. AFEBRILE.MAKES NEEDS KNOWN. ANTICIPATING D/C TODAY.
[2021-07-02 07:30] VITALS: BP 102/65
--- NOTE | 2021-07-02 08:55 | NUR ---
ASSUMED PT CARE THIS AM. PT IS ALERT & ORIENTED X4. PT HAS IV SITE ON LFA SALINE LOCKED. PT IS UP AD PRAKASH. PT IS ACCUCHECK ACHS. PT REFUSED MIRALAX THIS AM. PT C/O OF PAIN AND GIVEN PAIN MEDICATION THIS AM PER PT REQUEST. PT TOLERATED DIET AND MEDICATION WELL. WILL CONTINUE TO MONITOR PT. FOLLOW POC.
--- NOTE | 2021-07-02 10:56 | NUR ---
Assess due to high nutrition screen risk. Admit with left toe wound/gangrenous and has required amputation on 06/29. Has hx obesity, PAD, diabetes, +tobacco use. Visit with pt-states had some wt loss due to recent bouts diarrhea which "comes and goes". Otherwise good appetite and aware of need for high protein diet. Did not voice any questions regarding diet. Needs improved BG control, BG 200-300s. Likely discharge today. Low nutrition risk
[2021-07-02 11:45] LABS: HEMATOCRIT 36.6 % (37.0-47.0); HEMOGLOBIN 11.6 gm/dL (12.0-15.0); MCH 26.9 pg (26.0-34.0); MCHC 31.7 g/dL (28.0-37.0); MCV 84.9 fL (80.0-100.0); RBC 4.31 mil/uL (4.20-5.00); RDW 14.5 % (10.5-14.5); WBC 11.2 thou/uL (4.0-11.0)
--- NOTE | 2021-07-02 14:48 | NUR ---
spoke with patient who is hopeful to dc home today. patient reports she helps care with her mother and brother. Her brother had a stroke in past. She reports she takes him to Dr matthews and sets up medications in pill box. She reports he has 3 pill boxes.She also assists her mother. Both are fine while she is in hospital. Discussed [place] medicaid [place] with HH care. Patient reports she plans f/u with phys on outpatient basis. Denied need for any HH care. Updated phys. Spoke with ID Dr Delgado. Plan home with oral medications. scripts given to Rn and told RN Dr Delgado wants f/u in one week.
[2021-07-02] MEDS ORDERED: AMOX TR-K CLV1 EAC4 PO (16:38)
[2021-07-02] MEDS ORDERED: BENADRYL ALLERG25 MG PO (16:38)
[2021-07-02] MEDS ORDERED: HYDROCODON-ACE1 EAC7 PO (16:38)
[2021-07-02] MEDS ORDERED: LEVOFLOXACIN500 MG PO (16:38)
[2021-07-02] MEDS ORDERED: ACETAMINOPHEN325 M1 PO (16:38)
[2021-07-02 17:10] VITALS: BP 102/65
--- NOTE | 2021-07-03 07:47 | HC ---
[facility] [place] [address] CONSULTATION Name: EULOGIO RUIZ [facility] M.R.[facility] [id number] Admission: 06/26/21 Attend Phys: Arnold Ross MD Discharge: 07/02/21 Date of : 62 Report #: [id number] THIS REPORT FOR: cc: Sepideh Nelson MD, Nora P. MD Barry, Joseph W. MD ~ DATE OF SERVICE: 07/02/2021 INFECTIOUS DISEASE CONSULTATION ATTENDING PHYSICIAN: Dr. Arnold Ross REASON FOR EVALUATION: Osteomyelitis involving the third toe post partial ray amputation. HISTORY OF PRESENT ILLNESS: Chart reviewed. The patient examined. This is a 61-year-old woman with history of diabetes mellitus. This has been complicated by peripheral neuropathy and some vasculopathy, previous toe amputations of the left great toe, right fifth toe. She had a chronic ulceration subsequent to she described as a blood blister that denuded evaluation suggested possible osteomyelitis. She underwent a third ray resection. Pathology is pending. Operative culture with polymicrobial growth including E. coli, Enterococcus, Morganella and Staphylococcus epidermidis. She has currently been on combination therapy with Zosyn and vancomycin. She denies significant pain at this point. ALLERGIES: TETANUS. CURRENT MEDICATIONS: Include Zosyn, metformin, clopidogrel, aspirin, lisinopril, atorvastatin, vancomycin, pantoprazole, p.r.n. analgesics, antiemetics. PAST MEDICAL HISTORY: Includes hypertension, diabetes mellitus, has known vasculopathy, coronary artery disease, previous distal lower extremity amputations of the toes. SOCIAL HISTORY: Smokes cigarettes, 60-aqai-bdmm history. No ethanol and no illicit drug use. FAMILY HISTORY: Noncontributory. REVIEW OF SYSTEMS: Otherwise, unremarkable. PHYSICAL EXAMINATION: GENERAL: She is alert, cooperative. She is lucid, mild to moderate distress, appears somewhat chronically ill, although not toxic, afebrile. [facility] [address] [place] [address] CONSULTATION Name: [facility] Room #: 433-I [facility] IN [facility].#: [id number] Admission: 06/26/21 Attend Phys: Arnold Ross MD Discharge: 07/02/21 Date of : 62 Report #: [id number] VITAL SIGNS: Temperature 98, pulse 69, respirations 16, blood pressure 102/65. SKIN: Warm, dry, no rashes. HEENT: Normocephalic. Extraocular muscles intact. NECK: Supple. LUNGS: Somewhat diminished, otherwise clear. HEART: Regular. I do not appreciate a murmur. ABDOMEN: Soft, mildly distended, nontender. EXTREMITIES: Distal lower extremity has a dressing in place. GENITOURINARY AND RECTAL: Deferred. LABORATORY DATA: Sed rate of 49. CBC: White count 11.2, H and H 11.6 and 36.6, platelets of 415. Blood cultures collected on the are sterile thus far. Electrolytes: Sodium 139, potassium 4.2, chloride 102, bicarbonate is 27, anion gap of 10, BUN and creatinine 20 and 1.3, estimated GFR 42. ASSESSMENT AND PLAN: Suspected osteomyelitis involving the third toe. She is post partial ray amputation. We will transition to p.o. antibiotics with Augmentin and Levaquin. Pathology is not available. I did discuss with Dr. Lee, who felt it was quite clean and infection was only evident the distal aspect, beyond the joint, it was felt to be normal bone. We will see how she does clinically. She is supposed to follow up with wound care as well. We will see her in 1 week to discuss with case management. <ELECTRONICALLY SIGNED> By: Juan M Delgado MD 07/03/21 0747 1335 30 Juan M Delgado MD /nt
--- NOTE | 2021-07-03 17:06 | PATH ---
[facility] [address] [place] [address] PATHOLOGY RPT PROCEDURE Name: JANIE RUIZ Room #: 433-I DIS IN M.R.#: [id number] Admission: 06/26/21 Date of : 62 Discharge: 07/02/21 Report #: [id number] Path Case #: [id number] LCA Accession Number: [id number] . 01 Material submitted: . toe - LEFT THIRD TOE. Modifiers: left, third . 01 Clinical history: . DIABETIC FOOT ULCER WITH OSTEOMYELITIS AMPUTATION OF TOES . 02 Diagnosis: "Left third toe", amputation: - Ulceration with marked acute inflammation, abscess formation, osteonecrosis and marked acute osteomyelitis - Negative for malignancy. - Proximal margin viable. (SCA:liam; 07/03/2021) MBR 07/03/2021 1649 Local . 02 Electronically signed: . Abdoulaye Orozco DO, Pathologist NPI- [id number] . 01 Gross description: . The specimen is received in formalin, labeled "Janie Ruiz, left third toe". Received is an amputated digit measuring 5.4 x 2.9 x 2.7 cm in greatest dimensions. The bone margin is smooth and concave in appearance, consistent with disarticulation. The bone and soft tissue margins are inked black. The nail is present displaying a light torres and thickened appearance. At the distal aspect of the specimen, there is an ill-defined, irregular in contour and light brown lesion measuring 1.8 x 1.7 cm, which is 2.0 cm from the skin margin. The remainder of the epidermal surface is light torres to brown-black and sloughing in appearance. A full-thickness longitudinal cross-section is submitted from proximal to distal aspects in cassettes A1 through A3, following decalcification. (CAA; 07/02/2021) [facility] 07/02/2021 1032 Local . 02 Pathologist provided ICD-10: M87.872, M86.8X7 . 02 CPT . 715280, 063565 Specimen Comment: A courtesy copy of this report has been sent to [phone] Specimen Comment: [phone], [place] [address] PATHOLOGY RPT PROCEDURE Name: JANIE RUIZ Room #: 433-I DIS IN M.R.#: [id number] Admission: 06/26/21 Date of : 62 Discharge: 07/02/21 Report #: [id number] Path Case #: [id number] Specimen Comment: Report sent to , DR GRISSOM / DR ARROYO Performed at: 01 [facility] [address] [id number] MD Lloyd Burger MD Phone: [phone] Performed at: [address] [id number] MD Antonio Butler MD Phone: [phone]
== END 2021-07-02 17:23 | disposition home or self-care (01) | DRG 240 ==
LOC: ER 08:29 → EROBS 12:34 → 4S 12:34 → EROBS 19:57 → 4S 06-28 13:12
PROVIDERS: Student in an Organized Health Care Education/Training Program; ADMIT Internal Medicine; ATTEND Internal Medicine
PROC: B4181ZZ Fluoroscopy of Bilateral Renal Arteries using Low Osmolar Contrast (ICD-10-PCS; principal; 2021-06-28)
PROC: B41D1ZZ Fluoroscopy of Aorta and Bilateral Lower Extremity Arteries using Low Osmolar Contrast (ICD-10-PCS; principal; 2021-06-28)
PROC: 0Y6N0ZC Detachment at Left Foot, Partial 3rd Ray, Open Approach (ICD-10-PCS; 2021-06-29)
DX: E11.52 Type 2 diabetes mellitus with diabetic peripheral angiopathy with gangrene (principal); I96 Gangrene, not elsewhere classified; E44.0 Moderate protein-calorie malnutrition; Z68.1 Body mass index [BMI] 19.9 or less, adult; M86.172 Other acute osteomyelitis, left ankle and foot; I10 Essential (primary) hypertension; E78.5 Hyperlipidemia, unspecified; E89.0 Postprocedural hypothyroidism; K21.9 Gastro-esophageal reflux disease without esophagitis; F32.9 Major depressive disorder, single episode, unspecified; E11.69 Type 2 diabetes mellitus with other specified complication; F41.9 Anxiety disorder, unspecified; I25.10 Atherosclerotic heart disease of native coronary artery without angina pectoris; R53.81 Other malaise; E11.621 Type 2 diabetes mellitus with foot ulcer; E11.42 Type 2 diabetes mellitus with diabetic polyneuropathy; E78.00 Pure hypercholesterolemia, unspecified; K27.9 Peptic ulcer, site unspecified, unspecified as acute or chronic, without hemorrhage or perforation; E66.01 Morbid (severe) obesity due to excess calories; Z71.6 Tobacco abuse counseling; Z79.4 Long term (current) use of insulin; Z86.718 Personal history of other venous thrombosis and embolism; Z89.422 Acquired absence of other left toe(s); Z98.42 Cataract extraction status, left eye; Z98.41 Cataract extraction status, right eye; Z88.7 Allergy status to serum and vaccine; Z95.5 Presence of coronary angioplasty implant and graft; Z90.49 Acquired absence of other specified parts of digestive tract; Z83.3 Family history of diabetes mellitus; Z82.49 Family history of ischemic heart disease and other diseases of the circulatory system
CPT/HCPCS: 10100; 10195; 50010; 50101; 50386; 50951; 56525; 57091; 62110; 62900; 70005

== ENCOUNTER → 2021-07-11 | Outpatient (CLI) | payer OTHER ==
[~2021-07-11] MED LIST changes: +AMOX TR-K CLV1 EAC4 PO; +BENADRYL ALLERG25 MG PO; +LEVOFLOXACIN500 MG PO
== END ==
LOC: HYPER 08:44
PROVIDERS: ATTEND Emergency Medicine
DX: T87.81 Dehiscence of amputation stump (principal); E11.51 Type 2 diabetes mellitus with diabetic peripheral angiopathy without gangrene; E11.39 Type 2 diabetes mellitus with other diabetic ophthalmic complication; H40.9 Unspecified glaucoma; E78.5 Hyperlipidemia, unspecified; E07.89 Other specified disorders of thyroid; J45.909 Unspecified asthma, uncomplicated; I25.2 Old myocardial infarction; K21.9 Gastro-esophageal reflux disease without esophagitis; M19.90 Unspecified osteoarthritis, unspecified site; F41.9 Anxiety disorder, unspecified; F32.9 Major depressive disorder, single episode, unspecified; F17.200 Nicotine dependence, unspecified, uncomplicated; Z98.49 Cataract extraction status, unspecified eye; Z95.820 Peripheral vascular angioplasty status with implants and grafts; Z79.4 Long term (current) use of insulin; Y83.5 Amputation of limb(s) as the cause of abnormal reaction of the patient, or of later complication, without mention of misadventure at the time of the procedure

== ENCOUNTER 2021-07-15 23:20 | Inpatient (IN) | payer OTHER ==
[~2021-07-15] VITALS: Ht 160 cm; Wt 90.7 kg
--- NOTE | ~2021-07-15 | EMS ---
[place] [address] EMS Patient Care Report Name: EULOGIO RUIZ Room #: 212-P ADM IN M.R.#: [id number] Admission: 07/16/21 Attend Phys: Jona Wall MD Discharge: Date of : 62 Report #: [id number] THIS REPORT FOR: //name// Report Transmitted: 07/17/2021 15:40 EMS Care Summary [place], [place]/[facility] Incident [id number] @ 07/15/2021 22:40 Incident Location [address] [place] [address] Patient EULOGIO RUIZ Female, 61 Years 1960 Patient Address [address] [place] [address] Patient History Diabetes, Patient Allergies No known allergies, Patient Medications Other, Chief Complaint ABD PAIN W/ UNCONTROLLABLE VOMITTING/ DIARRHEA Disposition Transported Lights/Radiant Dispatch Reason Abdominal Pain/Problems Transported To [facility] Narrative UPON ARRIVAL PT LATERAL ON GROUND OF BATHROOM CONSCIOUS AND ALERT. PT HAD SUDDENLY DEVOLOPED LOWER ABD PAIN 1 HOUR AGO DESCRIBED CRAMPING. PT HAS BEEN THROWING UP AND DISPLAYS FECAL INCONTINENCE. PT PALE AND DIAPHORETIC. WEAK PULSES. PT CARRIED TO COT VIA MEGAMOVER. PT HYPOTENSIVE, IV STARTED [place] [address] EMS Patient Care Report Name: EULOGIO RUIZ Room #: 212-P ADM IN Marycruz#: [id number] Admission: 07/16/21 Attend Phys: Jona Wall MD Discharge: Date of : 62 Report #: [id number] GIVEN. PT TRANSPORTED EMERGENT TO [facility]. Initial Vitals @23:16P: 78,SpO2: 61, @23:01P: 85,SpO2: 76, @23:04P: 82, @23:01P: 85,BP: 61/44,SpO2: 72, @23:00P: 67,R: 20,BP: 54/31,Pain: 10/10,GCS: 14,Glucose: 280,SpO2: 89,Revised Trauma: 10,MD Suspected: false @23:11P: 81,R: 20,BP: 53/41,GCS: 14,SpO2: 98,Revised Trauma: 10, Assessments @22:47MENTAL:Other,Place Oriented,Person Oriented,Event Oriented,SKIN:Pale,Diaphoresis,HEENT:Head/Face: No Abnormalities,LUNG SOUNDS:General: Nausea,General: Diarrhea,General: Vomiting,ABDOMEN:General: Nausea,General: Diarrhea,General: Vomiting,PELVIS//GI:EXTREMITIES:Left Arm: Weakness,Right Arm: Weakness,Left Leg: Weakness,Right Leg: Weakness,PULSE:Radial: 1+ Thready,NEURO:No Abnormalities, Impression Hypotension Procedures @22:47 ALS Assessment Response: UnchangedSucceeded @23:00 IV Therapy - Normal Saline (.9% NaCl) 300cc (20 ga) Site: Hand-Left Response: UnchangedSucceeded @23:04 12-Lead ECG Response: UnchangedSucceeded @23:00 3-Lead ECG Response: UnchangedSucceeded @23:00 Oxygen FlowRate: 2 Device: Nasal Cannula (NC) Response: ImprovedSucceeded Timeline 22:38,Call Received 22:38,Dispatch Notified 22:40,Dispatched 22:41,En Route 22:45,On Scene 22:46,At Patient 22:47,ALS Assessment,Response: UnchangedSucceeded, 23:00,BP: 54/31 M,PULSE: 67,RR: 20 R,SPO2: 89 Ox,ETCO2: ,B,PAIN: 10,GCS: 14, 23:00,IV Therapy - Normal Saline (.9% NaCl) 300cc 20 ga Site: Hand-Left,Response: UnchangedSucceeded, 23:00,Oxygen FlowRate: 2 Device: Nasal Cannula (NC) Response: ImprovedSucceeded, 23:00,3-Lead ECG,Response: UnchangedSucceeded, [facility] [address] [place] [address] EMS Patient Care Report Name: [facility] Room #: 212-P ADM IN M.R.#: [id number] Admission: 07/16/21 Attend Phys: Jona Wall MD Discharge: Date of : 62 Report #: [id number] 23:01,BP: / M,PULSE: 85,RR: R,SPO2: 76 Ox,ETCO2: ,BG: ,PAIN: ,GCS: , 23:01,BP: 61/44 M,PULSE: 85,RR: R,SPO2: 72 Ox,ETCO2: ,BG: ,PAIN: ,GCS: , 23:04,12-Lead ECG,Response: UnchangedSucceeded, 23:04,BP: / M,PULSE: 82,RR: R,SPO2: Ox,ETCO2: ,BG: ,PAIN: ,GCS: , 23:05,Depart Scene 23:11,BP: 53/41 M,PULSE: 81,RR: 20 R,SPO2: 98 Ox,ETCO2: ,BG: ,PAIN: ,GCS: 14, 23:15,At Destination 23:16,BP: / M,PULSE: 78,RR: R,SPO2: 61 Ox,ETCO2: ,BG: ,PAIN: ,GCS: , 23:48,Call Closed Disclaimer v1.1 Copyright 2021 [employer] This EMS Care Summary contains data elements from the applicable legal record (which may be displayed differently). It is designed to provide pertinent information for the following purposes: continuity of care, clinical quality, and state data reporting. The complete legal record is available to ED staff and administrators of the receiving hospital in [employer]'s Patient Tracker. All data is provided "as is."
--- NOTE | ~2021-07-15 | EMS ---
[place] [address] EMS Patient Care Report Name: EULOGIO RUIZ Room #: PRE M.R.#: [id number] Admission: Attend Phys: Discharge: Date of : 62 Report #: [id number] THIS REPORT FOR: //name// Report Transmitted: 07/15/2021 22:59 EMS Care Summary [place], [place]/[facility] Incident [id number] @ 07/15/2021 22:40 Incident Location [address] [place] [address] Patient EULOGIO RUIZ Female, 61 Years 1960 Patient Address [address] [place] [address] Patient History Diabetes, Patient Allergies No known allergies, Patient Medications Other, Chief Complaint ABD PAIN W/ UNCONTROLLABLE VOMITTING/ DIARRHEA Disposition Transported Lights/[place] Dispatch Reason Abdominal Pain/Problems Transported To [facility] Narrative UPON ARRIVAL PT LATERAL ON GROUND OF BATHROOM CONSCIOUS AND ALERT. PT HAD SUDDENLY DEVOLOPED LOWER ABD PAIN 1 HOUR AGO DESCRIBED CRAMPING. PT HAS BEEN THROWING UP AND DISPLAYS FECAL INCONTINENCE. PT PALE AND DIAPHORETIC. WEAK PULSES. PT CARRIED TO COT VIA MEGAMOVER. PT HYPOTENSIVE, [place] [address] EMS Patient Care Report Name: EULOGIO RUIZ Room #: PRE LUTHER King#: [id number] Admission: Attend Phys: Discharge: Date of : 62 Report #: [id number] GIVEN. PT TRANSPORTED EMERGENT TO [facility]. Initial Vitals @23:16P: 78,SpO2: 61, @23:01P: 85,SpO2: 76, @23:04P: 82, @23:01P: 85,BP: 61/44,SpO2: 72, @23:00P: 67,R: 20,BP: 54/31,Pain: 10/10,GCS: 14,Glucose: 280,SpO2: 89,Revised Trauma: 10,DC Suspected: false @23:11P: 81,R: 20,BP: 53/41,GCS: 14,SpO2: 98,Revised Trauma: 10, Assessments @22:47MENTAL:Event Oriented,Person Oriented,Place Oriented,Other,SKIN:Diaphoresis,Pale,HEENT:Head/Face: No Abnormalities,LUNG SOUNDS:General: Vomiting,General: Diarrhea,General: Nausea,ABDOMEN:General: Vomiting,General: Diarrhea,General: Nausea,PELVIS//GI:EXTREMITIES:Right Leg: Weakness,Left Leg: Weakness,Right Arm: Weakness,Left Arm: Weakness,PULSE:Radial: 1+ Thready,NEURO:No Abnormalities, Impression Hypotension Procedures @22:47 ALS Assessment Response: UnchangedSucceeded @23:00 IV Therapy - Normal Saline (.9% NaCl) 300cc (20 ga) Site: Hand-Left Response: UnchangedSucceeded @23:04 12-Lead ECG Response: UnchangedSucceeded @23:00 3-Lead ECG Response: UnchangedSucceeded @23:00 Oxygen FlowRate: 2 Device: Nasal Cannula (NC) Response: ImprovedSucceeded Timeline 22:38,Call Received 22:38,Dispatch Notified 22:40,Dispatched 22:41,En Route 22:45,On Scene 22:46,At Patient 22:47,ALS Assessment,Response: UnchangedSucceeded, 23:00,BP: 54/31 M,PULSE: 67,RR: 20 R,SPO2: 89 Ox,ETCO2: ,B,PAIN: 10,GCS: 14, 23:00,IV Therapy - Normal Saline (.9% NaCl) 300cc 20 ga Site: Hand-Left,Response: UnchangedSucceeded, 23:00,Oxygen FlowRate: 2 Device: Nasal Cannula (NC) Response: ImprovedSucceeded, 23:00,3-Lead ECG,Response: UnchangedSucceeded, [facility] [address] [place] [address] EMS Patient Care Report Name: [facility] Room #: PRE M.R.#: [id number] Admission: Attend Phys: Discharge: Date of : 62 Report #: [id number] 23:01,BP: / M,PULSE: 85,RR: R,SPO2: 76 Ox,ETCO2: ,BG: ,PAIN: ,GCS: , 23:01,BP: 61/44 M,PULSE: 85,RR: R,SPO2: 72 Ox,ETCO2: ,BG: ,PAIN: ,GCS: , 23:04,12-Lead ECG,Response: UnchangedSucceeded, 23:04,BP: / M,PULSE: 82,RR: R,SPO2: Ox,ETCO2: ,BG: ,PAIN: ,GCS: , 23:05,Depart Scene 23:11,BP: 53/41 M,PULSE: 81,RR: 20 R,SPO2: 98 Ox,ETCO2: ,BG: ,PAIN: ,GCS: 14, 23:15,At Destination 23:16,BP: / M,PULSE: 78,RR: R,SPO2: 61 Ox,ETCO2: ,BG: ,PAIN: ,GCS: , 23:48,Call Closed Disclaimer v1.1 Copyright 2021 [employer] This EMS Care Summary contains data elements from the applicable legal record (which may be displayed differently). It is designed to provide pertinent information for the following purposes: continuity of care, clinical quality, and state data reporting. The complete legal record is available to ED staff and administrators of the receiving hospital in [employer]'s Patient Tracker. All data is provided "as is."
[2021-07-15 23:21] VITALS: BP 76/42
[2021-07-15 23:56] LABS: BE(vivo) -14.6 mmol/L (-2 to +3); HCO3 11.1 mmol/L (22.0-26.0); PCO2 VENOUS 26.3 mmHg (41.0-51.0); PO2 VENOUS 72.5 mmHg (35.0-45.0)
[2021-07-16 00:20] LABS: HEMATOCRIT 32.5 % (37.0-47.0); HEMOGLOBIN 9.8 gm/dL (12.0-15.0); MCH 26.9 pg (26.0-34.0); MCV 89.5 fL (80.0-100.0); PLATELET COUNT 337 thou/uL (150-400); RBC 3.63 mil/uL (4.20-5.00); RDW 16.4 % (10.5-14.5)
[2021-07-16 00:32] LABS: ALBUMIN 1.3 g/dL (3.4-5.0); ANION GAP 15 mmol/L (7-16); BUN 21 mg/dL (7-18); CHLORIDE 117 mmol/L (98-107); CO2 12 mmol/L (21-32); CREATININE 0.7 mg/dL (0.6-1.0); GLUCOSE 215 mg/dL (74-106); SGOT 19 U/L (15-37); SGPT 16 U/L (14-59); SODIUM 144 mmol/L (136-145); TOTAL BILIRUBIN 0.2 mg/dL (0.2-1.0); TOTAL PROTEIN 2.9 g/dL (6.4-8.2)
[2021-07-16 00:33] LABS: CALCIUM < 5.0 mg/dL (8.5-10.1); POTASSIUM 2.8 mmol/L (3.5-5.1)
[2021-07-16 01:03] LABS: LARGE PLATELETS FEW; PLATELET ESTIMATE NORMAL
[2021-07-16 01:04] LABS: ANISOCYTOSIS 1+; BURR CELLS 1+; POIKILOCYTOSIS 1+
[2021-07-16 01:16] LABS: URINE BILIRUBIN NEGATIVE (Negative); URINE BLOOD TRACE (Negative); URINE CLARITY CLEAR; URINE COLOR YELLOW; URINE GLUCOSE-RANDOM* 1+ (Negative); URINE KETONES NEGATIVE (Negative); URINE LEUKOCYTES-REFLEX NEGATIVE (Negative); URINE NITRITE-REFLEX NEGATIVE (Negative); URINE PROTEIN (DIPSTICK) 2+ (Negative); URINE UROBILINOGEN 0.2 E.U./dl (0.2-1.0)
[2021-07-16 02:11] LABS: SQUAMOUS 4-10 Moderate /LPF (0-3); URINE WBC-REFLEX 0-5 Rare /HPF (0-5)
[2021-07-16 02:12] LABS: BACTERIA-REFLEX 1-9 Few /HPF (None Seen); CASTS None Seen /LPF (None Seen); CRYSTALS None Seen /LPF (None Seen); MUCUS 0-3 Light strn/LPF (None Seen); URINE RBC 1-2 Rare /HPF (NONE SEEN)
[2021-07-16 05:51] VITALS: BP 131/46
[2021-07-16 06:37] VITALS: BP 153/68
[2021-07-16 07:00] VITALS: BP 128/52
--- NOTE | 2021-07-16 07:21 | NUR ---
PT ARRIVED ON FLOOR AROUND 0620. VS TAKEN. PT ASSISTED WITH BEDPAN. PT HAD BLOODY STOOL. SPECIMEN OBTAINED. DAY NURSE PROVIDED REPORT AND WILL F/U WITH STOOL SAMPLE. PT RESTING IN BED. IVF INTACT, ALVAREZ TO DD. BED ALARM ON.
[2021-07-16 09:54] LABS: ABSOLUTE NEUTROPHILS 14.2 thou/uL (1.4-8.2); BASOPHILS 0.2 % (0.0-2.0); EOSINOPHILS 0.1 % (0.0-3.0); HEMATOCRIT 37.9 % (37.0-47.0); LYMPHOCYTES 10.7 % (24.0-44.0); MCHC 32.4 g/dL (28.0-37.0); MONOCYTES 5.3 % (1.0-8.0); PLATELET COUNT 394 thou/uL (150-400); POLYS 83.7 % (36.0-66.0); RBC 4.54 mil/uL (4.20-5.00); RDW 15.2 % (10.5-14.5)
[2021-07-16 09:57] LABS: HEMOGLOBIN 12.3 gm/dL (12.0-15.0); MCV 83.4 fL (80.0-100.0)
[2021-07-16 10:00] LABS: CREATININE 1.5 mg/dL (0.6-1.0)
--- NOTE | 2021-07-16 10:03 | EKG ---
[address] [place] [address] ELECTROCARDIOGRAM REPORT Name: EULOGIO RUIZ Room #: 212- ADM IN M.R.#: [id number] Admission: 07/16/21 Attend Phys: Jona Wall MD Discharge: Date of : 62 Report #: [id number] 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: MAXIM : 1960 Requested By: Kody Taylor Order Number: [id number] MD: Haroldo Haile Measurements Intervals Power Rate: 78 P: 63 AZ: 147 QRS: -8 QRSD: 109 T: 60 QT: 387 QTc: 441 Interpretive Statements Sinus rhythm Inferior infarct, old Poor R wave progression Compared to ECG 04/28/2019 14:12:51 No significant changes Electronically Signed On 07-16-2021 7:52:37 RESIDENTIAL TREATMENT SPECIALIST by Haroldo Haile [email or web address] <ELECTRONICALLY SIGNED> By: Haroldo Haile MD, [facility] 07/16/21 [phone] [id number] Haroldo Haile MD, FACC /EPI
[2021-07-16 10:16] LABS: POTASSIUM 4.8 mmol/L (3.5-5.1)
[2021-07-16 10:17] LABS: CALCIUM 8.5 mg/dL (8.5-10.1)
[2021-07-16 11:30] VITALS: BP 102/56
--- NOTE | 2021-07-16 12:47 | NUR ---
PATIENT ADMITTED FOR N/V/D FALL AT HOME PNEUMONIA SEPSIS LOW ELECTROLYTES. CHART REVIEWED AND DISCUSSED WITH CARE TEAM. CM MET WITH PT THIS DAY. CM ROLE INTRODUCED. PT REPORTS SHE LIVES AND HOME WITH HER MOTHER AND BROTHER. SHE DENIES USE OF ASST DEVICE AND INDEP WITH ADLS AND MOBILITY. SHE REPORT HAVING HH IN 2019 AFTER LEFT GREAT [place]E [place]. SHE BELIEVES IT WAS HELP AT HOME. SHE REPORTS LIVING IN [place]PL[place] L[place]EL HOME WITH 5 STAIRS FOLLOWED BY LANDING AND 8 MORE STAIRS AND A FINAL LANDING WITH 5 STAIRS. SHE REPORT STEPS OUTSIDE THE HOME. 4 IN THE FRONT AND 4 IN THE BACK. PT DENIES NEEDS FOR DISCHARGE PLANNING AT THIS TIME INDICATING HER GOAL IS TO RETURN HOME ONCE MEDICALLY STABLE. PT UP AD PRAKASH IN ROOM. CM FOLLOWING FOR DISCHARGE PLANNING AND ASSESS FOR DC NEEDS.
[2021-07-16 15:30] VITALS: BP 85/48
--- NOTE | 2021-07-16 17:10 | NUR ---
PT WAS HAVING BLOODY STOOLS THIS MORNING, SO CLOPIDOGREL WAS HELD AND DR. VALDEZ WAS NOTIFIED. AN OCCULT STOOL AND C. DIFF SAMPLE WAS SENT. THE PATIENT WAS OCCULT STOOL POSITIVE AND C. DIFF NEGATIVE. DR. KHAN WAS CONSULTED WITH GI TO EVALUATE THE PT'S HEMATOCHEZIA. THE PT IS HAVING ABDOMINAL PAIN AND STATES SHE HAS A HISTORY OF GI ULCERS.
[2021-07-16 20:00] VITALS: BP 107/60
[2021-07-17 03:17] LABS: HEMOGLOBIN 10.5 gm/dL (12.0-15.0); MCH 27.9 pg (26.0-34.0); MCHC 32.9 g/dL (28.0-37.0); MCV 84.8 fL (80.0-100.0); RBC 3.77 mil/uL (4.20-5.00); WBC 14.4 thou/uL (4.0-11.0)
[2021-07-17 04:17] LABS: CALCIUM 8.1 mg/dL (8.5-10.1); CREATININE 0.9 mg/dL (0.6-1.0); POTASSIUM 4.9 mmol/L (3.5-5.1)
[2021-07-17 04:30] VITALS: BP 131/54
--- NOTE | 2021-07-17 07:38 | NUR ---
assessments as charted, pain meds given as charted for c/o abd pain, up adlib to br with frequent loose stools, remains npo except ice water, report given to next shift to con't ppoc.
[2021-07-17 09:20] VITALS: BP 118/50
[2021-07-17 20:29] VITALS: BP 108/62
[2021-07-18 02:34] LABS: HEMATOCRIT 33.1 % (37.0-47.0); HEMOGLOBIN 10.9 gm/dL (12.0-15.0); MCH 27.5 pg (26.0-34.0); MCHC 32.9 g/dL (28.0-37.0); MCV 83.5 fL (80.0-100.0); RBC 3.96 mil/uL (4.20-5.00); RDW 15.1 % (10.5-14.5); WBC 10.1 thou/uL (4.0-11.0)
[2021-07-18 02:52] LABS: CALCIUM 8.7 mg/dL (8.5-10.1); CREATININE 0.9 mg/dL (0.6-1.0); POTASSIUM 4.5 mmol/L (3.5-5.1)
[2021-07-18 03:24] VITALS: BP 128/71
--- NOTE | 2021-07-18 04:41 | NUR ---
ASSESSMENTS CHARTED, VSS, PRN PAIN MEDS GIVEN FOR C/O ABDOMINAL PAIN, REMAINS NPO EXCEPT SIPS OS WATER, DRESSING REMAINS CDI, MRSA SWAB CAME BACK NEG., WILL CON'T TO MONITOR PER PPOC.
[2021-07-18 08:00] VITALS: BP 118/47
[2021-07-18 11:00] VITALS: BP 119/61
--- NOTE | 2021-07-18 16:08 | NUR ---
ASSUMED PT CARE THIS MORNING. PT A&OX4 AND COMMUNICATING NEEDS APPROPRIATLEY. PT HAD PAIN THROUGHOUT THE SHIFT THAT WAS WELL MANAGED WITH PO AND IV MEDICATION. PTS DIET WAS ADVANCED TODAY. PT TOLERATED CLEAR LIQUIDS AND A REGULAR DIET. DENIES ANY NAUSEA OR VOMITING. PT VOIDING WITHOUT ANY ISSUES AND IS UP ADLIB IN THE ROOM.
[2021-07-18 17:44] VITALS: BP 98/43
[2021-07-18 19:32] VITALS: BP 125/59
--- NOTE | 2021-07-19 03:41 | NUR ---
NURSING NOTE: SHIFT ASSESSMENT: PT ALERT AND ORIENTED X4; MOVES ALL EXTREMITIES AND FOLLOWS COMMANDS. C/O PAIN X2 TIMES THIS SHIFT, MEDICATION GIVEN ORDERED AND IS EFFECTIVE PER PATIENT. DENIES NEEDS AT THIS TIME. ALL VS AND ASSESSMENTS CHARTED. WILL CONTINUE TO MONITOR.
[2021-07-19 05:17] VITALS: BP 122/59
[2021-07-19 07:30] VITALS: BP 134/68
[2021-07-19 09:32] LABS: ABSOLUTE NEUTROPHILS 7.7 thou/uL (1.4-8.2); BASOPHILS 0.6 % (0.0-2.0); EOSINOPHILS 2.3 % (0.0-3.0); HEMATOCRIT 34.8 % (37.0-47.0); HEMOGLOBIN 11.3 gm/dL (12.0-15.0); LYMPHOCYTES 14.3 % (24.0-44.0); MCH 27.2 pg (26.0-34.0); MCHC 32.5 g/dL (28.0-37.0); MCV 83.8 fL (80.0-100.0); MONOCYTES 9.6 % (1.0-8.0); PLATELET COUNT 319 thou/uL (150-400); POLYS 73.2 % (36.0-66.0); RBC 4.15 mil/uL (4.20-5.00); RDW 14.7 % (10.5-14.5); WBC 10.6 thou/uL (4.0-11.0)
[2021-07-19 09:52] LABS: CALCIUM 8.2 mg/dL (8.5-10.1); CREATININE 2.7 mg/dL (0.6-1.0); POTASSIUM 4.8 mmol/L (3.5-5.1)
[2021-07-19 11:25] VITALS: BP 125/44
[2021-07-19] MEDS ORDERED: AUGMENTIN 875-1 EACH PO (12:50)
[2021-07-19 14:05] VITALS: BP 125/44
--- NOTE | 2021-07-19 14:37 | NUR ---
ASSUMED CARE OF PATIENT AT 0700. PATIENT REMAINS A&O, RA, NSR ON TELE. BLOOD GLUCOSE TREATED WITH INSULIN PER MAR. PATIENT TO DC HOME, SELF CARE. IV AN DTELE DC'D AND REMOVED. DC EDUCATION COMPLETED. BELONGINGS GATHERED. PATIENT WHEELED OUT TO WAITING VEHICLE BY STAFF. PATIENT PROGRESSED TOWARD POC.
== END 2021-07-19 16:40 | disposition home or self-care (01) | DRG 871 ==
LOC: ER 23:20 → EROBS 07-16 05:02 → 2N 07-16 05:02
PROVIDERS: Emergency Medicine; Nurse Practitioner; ADMIT Hospitalist; ATTEND Hospitalist
DX: A41.9 Sepsis, unspecified organism (principal); J18.9 Pneumonia, unspecified organism; E43 Unspecified severe protein-calorie malnutrition; K92.1 Melena; M86.8X8 Other osteomyelitis, other site; A09 Infectious gastroenteritis and colitis, unspecified; K55.9 Vascular disorder of intestine, unspecified; I10 Essential (primary) hypertension; E78.5 Hyperlipidemia, unspecified; E89.0 Postprocedural hypothyroidism; F32.9 Major depressive disorder, single episode, unspecified; F41.9 Anxiety disorder, unspecified; E11.51 Type 2 diabetes mellitus with diabetic peripheral angiopathy without gangrene; F17.210 Nicotine dependence, cigarettes, uncomplicated; I95.9 Hypotension, unspecified; E83.42 Hypomagnesemia; E87.6 Hypokalemia; E83.51 Hypocalcemia; E11.42 Type 2 diabetes mellitus with diabetic polyneuropathy; R53.81 Other malaise; E66.01 Morbid (severe) obesity due to excess calories; E11.69 Type 2 diabetes mellitus with other specified complication; Z20.822 Contact with and (suspected) exposure to COVID-19; Z86.718 Personal history of other venous thrombosis and embolism; I25.2 Old myocardial infarction; Z89.422 Acquired absence of other left toe(s); Z95.5 Presence of coronary angioplasty implant and graft; Z89.421 Acquired absence of other right toe(s); Z88.8 Allergy status to other drugs, medicaments and biological substances; Z68.35 Body mass index [BMI] 35.0-35.9, adult; Z79.82 Long term (current) use of aspirin; Z79.899 Other long term (current) drug therapy; Z87.11 Personal history of peptic ulcer disease; Z71.6 Tobacco abuse counseling
CPT/HCPCS: 10081

== ENCOUNTER → 2021-08-01 | Outpatient (CLI) | payer OTHER ==
[~2021-08-01] MED LIST changes: +AUGMENTIN 875-1 EACH PO
== END ==
LOC: HYPER 08:56
PROVIDERS: ATTEND Emergency Medicine
DX: T87.81 Dehiscence of amputation stump (principal); E11.51 Type 2 diabetes mellitus with diabetic peripheral angiopathy without gangrene; E11.39 Type 2 diabetes mellitus with other diabetic ophthalmic complication; H40.9 Unspecified glaucoma; E78.5 Hyperlipidemia, unspecified; E07.89 Other specified disorders of thyroid; J45.909 Unspecified asthma, uncomplicated; I25.2 Old myocardial infarction; K21.9 Gastro-esophageal reflux disease without esophagitis; M19.90 Unspecified osteoarthritis, unspecified site; F41.9 Anxiety disorder, unspecified; F32.9 Major depressive disorder, single episode, unspecified; F17.200 Nicotine dependence, unspecified, uncomplicated; Z98.49 Cataract extraction status, unspecified eye; Z95.820 Peripheral vascular angioplasty status with implants and grafts; Z79.4 Long term (current) use of insulin; Y83.5 Amputation of limb(s) as the cause of abnormal reaction of the patient, or of later complication, without mention of misadventure at the time of the procedure

== ENCOUNTER → 2021-08-15 | Outpatient (CLI) | payer OTHER | LOC: HYPER 08:37 | PROVIDERS: ATTEND Emergency Medicine | DX: T87.81 Dehiscence of amputation stump (principal); E11.51 Type 2 diabetes mellitus with diabetic peripheral angiopathy without gangrene; E11.39 Type 2 diabetes mellitus with other diabetic ophthalmic complication; H40.9 Unspecified glaucoma; E78.5 Hyperlipidemia, unspecified; E07.89 Other specified disorders of thyroid; E66.9 Obesity, unspecified; J45.909 Unspecified asthma, uncomplicated; I25.2 Old myocardial infarction; K21.9 Gastro-esophageal reflux disease without esophagitis; M19.90 Unspecified osteoarthritis, unspecified site; F41.9 Anxiety disorder, unspecified; F32.9 Major depressive disorder, single episode, unspecified; F17.200 Nicotine dependence, unspecified, uncomplicated; Z98.49 Cataract extraction status, unspecified eye; Z95.820 Peripheral vascular angioplasty status with implants and grafts; Z79.4 Long term (current) use of insulin; Z68.34 Body mass index [BMI] 34.0-34.9, adult; Y83.5 Amputation of limb(s) as the cause of abnormal reaction of the patient, or of later complication, without mention of misadventure at the time of the procedure ==